=== PATIENT | female | born 1995 | race Caucasian/White ===

== ENCOUNTER 2017-10-05 15:04 | Inpatient (IN) | payer BC, OTHER ==
[~2017-10-05] VITALS: Ht 160 cm; Wt 52.6 kg
[~2017-10-05 15:04] MED LIST: ASPI-618 PO; FLUC150T PO; Metronidazole PO; SERT50TA PO
[2017-10-05] MEDS ORDERED: GABA-532 PO (23:36)
[2017-10-05] MEDS ORDERED: METH-406 PO (23:36)
[2017-10-05] MEDS ORDERED: DIAZEPAM 10 MG TABLET PO PRN ×2 (23:45)
[2017-10-05] MEDS ORDERED: IBUPROFEN 600 MG TABLET PO PRN (23:45)
[2017-10-05] MEDS ORDERED: LOPERAMIDE HCL 2 MG CAPSULE PO PRN ×2 (23:45)
[2017-10-05] MEDS ORDERED: ONDANSETRON ODT 4 MG TAB.RAPDIS SL PRN (23:45)
[2017-10-05] MEDS ORDERED: diphenhydrAMINE 50 MG CAPSULE PO PRN (23:45)
[2017-10-05] MEDS ORDERED: MIRALAX 17 GM POWD.PACK PO PRN (23:45)
[2017-10-05] MEDS ORDERED: DICYCLOMINE HCL 20 MG TABLET PO PRN (23:45)
[2017-10-05] MEDS ORDERED: MAG HYDROX/AL HYDROX/SIMETH 30 ML LIQUID UDC PO PRN (23:45)
[2017-10-05] MEDS ORDERED: DIAZEPAM 5 MG TABLET PO PRN (23:45)
[2017-10-05] MEDS ORDERED: ONDANSETRON 4 MG/2 ML VIAL IM PRN (23:45)
[2017-10-05] MEDS ORDERED: THIAMINE HCL 200 MG/2 ML VIAL IM ONE (23:45)
[2017-10-05] MEDS ORDERED: BUPRENORPHINE HCL 2 MG TAB.SUBL SL PRN (23:45)
--- NOTE | 2017-10-05 23:45 | NUR ---
Intake assessment Assessment done in intake office. Px is A&Ox4. Px is ambulatory with steady gait. Px's speech is clear and audible. Px appears anxious and intoxicated but cooperative. VS are as follows BP= 117/53, CT= 108, RR= 17, O2sat= 100%, has back pain 02/22. Px has NKA. Px is here for medically supervised withdrawals from opiate and benzo. Px stated that she has hx of withdrawal induced seizures where the last was few mos ago. Px didn't bring any medications for reconciliation. Px instructed that admission process will be continued in the unit.
[2017-10-06 00:18] LABS: BASOPHILS % (AUTO) 0.5 % (0.0-2.0); EOSINOPHILS # (AUTO) 0.2 K/uL (0.0-0.7); EOSINOPHILS % (AUTO) 2.9 % (0.0-7.0); HEMATOCRIT 41.3 % (31.2-41.9); HEMOGLOBIN 13.5 g/dL (10.9-14.3); LYMPHOCYTES # (AUTO) 3.2 K/uL (20.0-40.0); LYMPHOCYTES % (AUTO) 55.3 % (20.5-51.5); MEAN CORPUSCULAR HEMOGLOBIN 27.9 uug (24.7-32.8); MEAN CORPUSCULAR HGB CONC 33 g/dL (32.3-35.6); MEAN CORPUSCULAR VOLUME 85.1 fL (75.5-95.3); MONOCYTES # (AUTO) 0.5 K/uL (2.0-10.0); MONOCYTES % (AUTO) 8.5 % (0.0-11.0); NEUTROPHILS # (AUTO) 1.9 K/uL (1.8-8.9); NEUTROPHILS % (AUTO) 32.8 % (38.5-71.5); PLATELET COUNT (AUTO) 241 K/uL (179-408); RED BLOOD CELL COUNT(AUTO) 4.85 MIL/uL (3.63-4.92); WHITE BLOOD COUNT (AUTO) 5.8 K/uL (3.8-11.8)
--- NOTE | 2017-10-06 00:30 | NUR ---
Admission Notes A 22 y/o female px admitted at [facility] for medically supervised withdrawals from opiate and benzo. Px arrived in the unit on 10/06/2017 at 0005. Body search done and skin check performed. No contraband found. Needle prick noted on left antecubital fossa and scratch due to picking on left lateral part of mid back. Px's height is 5'3" and weighs 116 lbs. in standing scale. Px is oriented on the floor unit and room. Px follows regular diet at home. Px has NKA. Px wishes to be on Full Code. Px is A&Ox4. Px is ambulatory with steady gait. Px's speech is clear and audible. Px is cooperative during admission process. Respirations are even and unlabored. No SOB noted. Abdomen is soft and non distended. Bowel sounds noted on all 4 quadrants. Last BM was 5 days ago as verbalized. No N/V at the moment. Px complains of body aches concentrated on low back 02/22. Px stated "My anxiety is very high right now, I feel like I am near in panic mood". COWS is 14 and CIWA 16. VS are as follows BP= 123/64, TX= 96, RR= 16, T= 98.2, O2sat= 99% on RA. Px reported PMHx of withdrawal induced seizures where the last, was few mos ago, pneumonia, ulcer, UTI, fx on L1 (2016), back pain, appendectomy in 2009, anxiety, and depression. Px reported suicide thoughts and attempt last July of 2016. Substance Use: 1. Heroin- 1 G IV daily for 3 mos, last intake 10/05/2017 of 0.25 G IV 2. Xanax- 15 mg- 20 mg PO for 7 yrs, last intake 10/04/2017 of 5 mg PO 3. Methamphetamine intermittent use for 3 mos, last intake 10/03/2017 4. Cannabinoids- 2 G smoked for 3 mos, last intake 10/05/2017 of 2 G Px stated that she has been in multiple detox/treatment. Px denies being hospitalized in the last 30 days. Px reported that her longest sobriety was 6 mos last 2016. Px stated that she feels normal if she is not using drugs. Px smokes 1 pack of cigarettes daily. Px refused pneumonia and flu vaccines. Bed in lowest position, side rails up 2x and call light is within reach. We'll continue to monitor.
[2017-10-06 00:33] LABS: *AMPHETAMINE, URINE POSITIVE (NEGATIVE); *BARBITURATE, URINE NEGATIVE (NEGATIVE); *CANNABINOID, URINE POSITIVE (NEGATIVE); *COCCAINE, URINE NEGATIVE (NEGATIVE); *OPIATE, URINE POSITIVE (NEGATIVE); *PHENCYCLIDINE SCREEN,URINE NEGATIVE (NEGATIVE)
[2017-10-06 00:55] LABS: BILIRUBIN,TOTAL 0.3 mg/dL (0.2-1.0); CREATININE 0.9 mg/dL (0.6-1.3); MAGNESIUM 2.3 mg/dL (1.8-2.4); POTASSIUM 4.1 mmol/L (3.5-5.1)
[2017-10-06] MEDS: METHOCARBAMOL 750 MG TABLET PO PRN ×2 (01:01→20:29)
[2017-10-06 01:08] LABS: *URINE HCG, QUAL NEGATIVE (NEGATIVE)
[2017-10-06] MEDS: MAGNESIUM HYDROXIDE 30 ML LIQUID UDC PO PRN ×2 (01:10→21:43)
--- NOTE | 2017-10-06 01:10 | NUR ---
PRN meds At 0034, Valium 10 mg/tab, 2 tabs given PO as PRN med for CIWA of 16. At 0100, Vit B1 100 mg injection given IM on right deltoids. At 0101, Robaxin 750 mg/tab, 1 tab given PO as PRN med for body pains of 7/10. At 0110, Milk of Magnesia 30 ml given PO as PRN for constipation. We'll continue to monitor.
--- NOTE | 2017-10-06 02:01 | NUR ---
Reassessment of body aches Px stated that his body aches improved from 7/10 to 4/10. We'll continue to monitor.
[2017-10-06 04:00] VITALS: BP 117/61
--- NOTE | 2017-10-06 04:00 | NUR ---
COWS and CIWA deferred COWS and CIWA deferred due to the px is asleep, to assess if the px is awake per doctor's order. We'll continue to monitor.
--- NOTE | 2017-10-06 07:04 | NUR ---
End of Shift Note During the shift, at 0034, Valium 20 mg given PO for CIWA of 16. CIWA improved to 11 after an hour. Last COWS 9. At 0100, Vit B1 injection 100 mg given IM on right deltoids as 1x dose. At 0101, Robaxin 750 mg given PO for pain of 7/10 and it was effective. At 0110, MOM 30 ml given PO for constipation. Px's oral intake of 800 ml, voided 2x, No BM. Slept for 4 hours. At 0630, px is asleep on bed in fowlers position. Px's bed on lowest position, side rail up 2x, and call light within reach. We'll continue to monitor. Px endorsed to AM shift nurse.
--- NOTE | 2017-10-06 07:20 | NUR ---
START OF SHIFT PATIENT IS A 22 YR OLD ADMITTED TO [facility] ON 10/05/17 FOR WITHDRAWAL FROM HEROIN, ALCOHOL AND METHAMPHETAMINE, SHE IS ASLEEP IN BED AT THIS TIME, BREATHING EVEN AND UNLABORED SIDE RAILS UP X 2. SHE IS ON A 5 DAY VALIUM/SUBUTEX TAPER AND THIS IS DAY 2. 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 LAST COWS 9 CIWA 11@ 0200. PPD TO BE ADMINISTERED TODAY. PATIENT SLEPT FOR 4 HOURS LAST NIGHT. WILL FOLLOW MD PLAN OF CARE.
[2017-10-06 08:00] VITALS: BP 94/41
[2017-10-06] MEDS: GABAPENTIN 400 MG CAPSULE PO SCH ×3 (08:51→20:29)
[2017-10-06] MEDS: THIAMINE HCL 100 MG TABLET PO SCH (08:51)
[2017-10-06] MEDS: FOLIC ACID 1 MG TABLET PO SCH (08:51)
[2017-10-06] MEDS: MULTIVITAMINS,THERAPEUTIC TABLET PO SCH (08:51)
[2017-10-06] MEDS: DIAZEPAM 10 MG TABLET PO SCH ×3 (08:52→20:29)
[2017-10-06] MEDS: BUPRENORPHINE HCL 2 MG TAB.SUBL SL SCH ×3 (08:52→20:30)
[2017-10-06] MEDS ORDERED: TUBERCULIN,PURIF.PROT.DERIV. 5 TU/0.1 ML TEST ID ONE (09:00)
[2017-10-06 12:00] VITALS: BP 109/68
--- NOTE | 2017-10-06 13:07 | NUR ---
PRN VALIUM 5MG VALIUM PO GIVEN FOR COMPLAINTS IN INCREASED ANXIETY AND VISIBLE TREMORS, WILL REASSES COWS 10 CIWA 10
--- NOTE | 2017-10-06 14:07 | NUR ---
VALIUM REASSESS PATIENT STATES ANXIETY LEVEL IS STILL THE SAME, COWS 10 CIWA 10, WILL BE GIVING SCHEDULED MEDS AND CONTINUE TO ASSESS
--- NOTE | 2017-10-06 14:27 | NUR ---
PRN MEDS PATIENT STATES SHE IS VERY CONSTIPATED AND MAY HAVE HEMORRHOIDS, MIRALAX 17G GIVEN FOR CONSTIPATION AND 0.1MG PO CLONIDINE FOR ANXIETY, WILL CONTINUE TO MONITOR
[2017-10-06] MEDS: CLONIDINE HCL 0.1 MG TABLET PO PRN ×2 (14:28→21:43)
--- NOTE | 2017-10-06 15:27 | NUR ---
PRN REASSESS PATIENT STATES NO BM YET, ANXIETY LEVEL HAS INCREASED DUE TO BF ON THE UNIT PLANNING ON LEAVING AMA, TALKED TO THERAPIST WHO WILL TALK TO PATIENT 1:1. WILL CONTINUE TO MONITOR.
[2017-10-06 16:00] VITALS: BP 107/64
[2017-10-06] MEDS: SERTRALINE HCL 50 MG TABLET PO SCH (17:15)
--- NOTE | 2017-10-06 17:55 | NUR ---
REFUSAL OF ZOLOFT PATIENT STATES THAT SHE DOES NOT WANT TO TAKE ZOLOFT, THAT IT " DOESN'T WORK FOR ME " , SHE WOULD LIKE SOMETHING LIKE ATIVAN ! WILL CONTINUE TO MONITOR.
--- NOTE | 2017-10-06 18:55 | NUR ---
PRN VALIUM 10MG PO VALIUM PRN GIVEN FOR CIWA 11, CONTINUE TO MONITOR
--- NOTE | 2017-10-06 19:11 | NUR ---
END OF SHIFT : PATIENT IS A 22 YEAR OLD ADMITTED 10/05/17 TO [facility] FOR WITHDRAWAL FROM OPIATES AND BENZODIAZEPINES. TODAY IS DAY 1 OF A 5 DAY ATIVAN/SUBUTEX TAPER. PPD PLACED ON RIGHT FOREARM. PATIENT PRESENTS WITH HIGH ANXIETY FROM TIME TO TIME DUE TO HER WORRY ABOUT HER BF ON THE UNIT EXPRESSING HIS DESIRE TO LEAVE AMA. GRACE THE THERAPIST SPOKE TO PATIENT 1:1 AND ENCOURAGED HER TO THINK ABOUT HER OWN RECOVERY. PATIENT APPEARS MORE CALM . PRN MEDS GIVEN THIS SHIFT 5MG VALIUM PO,10MG VALIUM PO, MIRALAX 17G AND CLONIDINE 0.1MG PO. FLUID INTAKE THIS SHIFT 2000 ML, 4 VOIDS AND 0 BM. PATIENT REFUSED TO TAKE ZOLOFT THAT DR SPENCE ORDERED SAYING " THAT DOESNT WORK FOR ME ". LAST COWS 12 AND CIWA 13 @ 1600, CONTINUE TO FOLLOW MD PLAN OF CARE.
--- NOTE | 2017-10-06 19:22 | NUR ---
PRN REASSESS UNABLE TO REASSESS PT IN GROUP , WILL HAVE PM NURSE REASSESS.
--- NOTE | 2017-10-06 19:30 | NUR ---
Start of Shift Notes Received 22 y/o female admitted for medically supervised withdrawals from opiate and benzo. Px is on 5 day Valium and 5 day Subutex taper. Px is awake standing inside her room. Unfolded clothes noted on her bed. Px appears depressed and anxious. Px verbalized "I am near panic attack. I need you to manage my anxiety". "I have very bad panic attacks". Last Valium 10 mg was given PO as PRN at 1855 by AM shift nurse. Explained the effect of Valium and what are the effects of medications that are scheduled at 2100 tonight. Seng was crying while talking about her issues on her boyfriend who is admitted also here in the unit. Px was reassured. Last reported COWS 12 and CIWA 11 at 1855. Bed on lowest position, side rail up 2x padded, and call light within reach. We'll continue to monitor.
[2017-10-06 20:00] VITALS: BP 102/60
[2017-10-06] MEDS: LEVETIRACETAM 500 MG TABLET PO SCH (20:29)
--- NOTE | 2017-10-06 21:30 | NUR ---
Reassessment of back pain Px stated that there was a little improvement of back pain from 8/10 to 5-6/10. We'll continue to monitor.
--- NOTE | 2017-10-06 21:43 | NUR ---
PRN meds At 2028, Robaxin 750 mg given PO for back pain of 8/10. At 2142, Bentyl 20 mg given PO for stomach cramps, Clonidine 0.1 mg given PO for anxiety and Milk of Magnesia 30 ml given PO for constipation. We'll continue to monitor.
--- NOTE | 2017-10-06 22:45 | NUR ---
Reassessment of anxiety Px stated that her anxiety is still high at 7/10. We'll continue to monitor.
--- NOTE | 2017-10-06 22:45 | NUR ---
Reassessment of stomach cramps Px stated that her stomach cramps improved after an hour of administration of Bentyl 20 mg PO. We'll continue to monitor.
--- NOTE | 2017-10-06 23:00 | NUR ---
BM Px stated that she pass BM 1x large after more than 1 hour of administration of MOM 30 ml PO. We'll continue to monitor.
[2017-10-06] MEDS: LORAZEPAM 2 MG/1 ML VIAL IM PRN (23:43)
[2017-10-07] VITALS: BP 112/61
--- NOTE | 2017-10-07 | NUR ---
Seizure episodes At 2336, CUPOLA OPERATOR called out for help due to the px is having seizure on the floor in the hallway. Px was protected and put to left side lying position. VS as follows BP= 135/87, QD=613, O2sat= 100%. Tonic clonic seizure lasted for 30 seconds. According to the CUPOLA OPERATOR Vicki, px didn't hit the floor while the px went down from standing position. notified. Px was assisted back to her bed in the room via wheelchair. Px was placed on 1 to 1 and Ativan 2 mg/ml given IM per doctor's order. Px was disoriented for few minutes. Px was reoriented and reassured. At 2354, 2nd episode tonic clonic seizure that lasted for 35 seconds, again px was protected and put to left side lying position. VS as follows BP= 142, WI 89, O2sat= 100% with O2 inhalation at 10 LPM via non-rebreather mask. Px was again disoriented after the seizure. Px was frustrated that she was disoriented then started crying. Px was reoriented, comforted and redirected. At 0000, 3rd episode of tonic clonic seizure occurred and lasted for 45 seconds. Px was protected and put to her left side. VS as follows, BP= 112/61, WI= 117, [id number]=475% with [id number] of 10 LPM via non rebreather mask. Ativan 2mg/ml given IM at 0012. Px was again disoriented postictal. Px was reoriented and reassured. Px fell asleep around 0030. At 0400, BP= 114/69, WI=64, O2sat= 99% on RA, and RR= 16. Px kept on 1 to 1 sitter. We'll continue to monitor.
[2017-10-07] MEDS ORDERED: LORAZEPAM 2 MG/1 ML VIAL ONE (00:12)
--- NOTE | 2017-10-07 00:12 | NUR ---
PRN Ativan injections At 2343, Ativan 2 mg/ml given IM as PRN med for 1st seizure. At 0012, Ativan 2 mg/ml given IM for 3rd seizure. 2nd dose of Ativan was over ridden by the charge nurse due to the Pyxis didn't allow to remove the Ativan IM. Order was to repeat 1x after 2 minutes if there is ongoing convulsions.
[2017-10-07] MEDS: LORAZEPAM 2 MG/1 ML VIAL IM PRN (00:14)
[2017-10-07 04:00] VITALS: BP 114/69
--- NOTE | 2017-10-07 07:25 | NUR ---
End of Shift Notes During the shift, at 2028, Robaxin 750 mg given PO for back pain of 8/10, and it was not so effective. At 2142, bentyl 20 mg, Clonidine 0.1 mg and MOM 30 ml given PO for stomach cramps, anxiety and constipation respectively, and they were effective. Px had 3 episodes of tonic clonic convulsions, MD aware. Ativan 2 mg/ml given IM at 2342 and 11 and Px was placed on 1 to 1 per doctors order. Pxs oral intake is 800 ml, voided 2x, BM 1x. Slept for 6 hours. Last COWS 10 and CIWA 11. Bed on lowest position, side rail up 2x padded, and call light within reach. We'll continue to monitor.
--- NOTE | 2017-10-07 07:30 | NUR ---
START OF SHIFT Pt 22 y/o female admitted for medically supervised withdrawal. Pt received in room on bed with eyes closed resting, but easily arousable to name. Pt with sitter 1:1 for safety. Pt alert and oriented to name, place, and time. Perrla. Skin warm and moist to touch. Respirations even and unlabored. Bilateral hand tremors noted. Pt appears disheveled with hair uncombed. Dirty clothes observed on the floor by bedside. Pt anxious and restless this morning, not able to lay still while on bed, and with pressured speech noted. It was reported that pt slept for 6 hours last night. Pt is on a 5 day valium taper and is on day 2. Pt is also on 5 day subutex taper and is on day 2. Last cows=10 and ciwa=11 reported at 0000. Bed on lowest position with side rails x 2 up for safety. Call light within reach.
[2017-10-07 08:00] VITALS: BP 122/91
[2017-10-07 08:07] LABS: HEPATITIS B SURFACE AG Negative (Negative)
[2017-10-07] MEDS: SERTRALINE HCL 50 MG TABLET PO SCH (08:09)
[2017-10-07] MEDS: THIAMINE HCL 100 MG TABLET PO SCH (08:09)
[2017-10-07] MEDS: GABAPENTIN 400 MG CAPSULE PO SCH (08:09)
[2017-10-07] MEDS: MULTIVITAMINS,THERAPEUTIC TABLET PO SCH (08:09)
[2017-10-07] MEDS: LEVETIRACETAM 500 MG TABLET PO SCH ×2 (08:09→20:44)
[2017-10-07] MEDS: DIAZEPAM 10 MG TABLET PO SCH ×3 (08:09→20:44)
[2017-10-07] MEDS: FOLIC ACID 1 MG TABLET PO SCH (08:09)
[2017-10-07] MEDS: METHOCARBAMOL 750 MG TABLET PO PRN ×2 (08:26→20:44)
--- NOTE | 2017-10-07 08:26 | NUR ---
PRN Pt states has body aches 7/10 of generalized back. Robaxin po prn per MD order given and tolerated well.
[2017-10-07] MEDS: ACETAMINOPHEN 325 MG TABLET PO PRN (08:30)
--- NOTE | 2017-10-07 08:30 | NUR ---
PRN Pt states has pain 7/10 of right hip. Tylenol po prn per MD order given and tolerated well.
[2017-10-07] MEDS ORDERED: KETOROLAC TROMETHAMINE 30 MG INJ IM ONE (09:00)
[2017-10-07] MEDS ORDERED: BUPRENORPHINE HCL 2 MG TAB.SUBL SL SCH (09:00)
--- NOTE | 2017-10-07 09:26 | NUR ---
PRN CAROLIN Pt observed in room on bed with eyes closed resting, but easily arousable to name.
--- NOTE | 2017-10-07 09:30 | NUR ---
PRN CAROLIN Pt observed in room on bed with eyes closed resting, but easily arousable to name.
[2017-10-07 12:00] VITALS: BP 100/62
--- NOTE | 2017-10-07 12:00 | NUR ---
CIWA AND COWS DEFERRED CIWA and COWS deferred. Pt in room with on bed with eyes closed resting, but arousable to name. Pt not able to keep eyes open for further assessment.
[2017-10-07] MEDS: DIVALPROEX 250 MG TABLET.DR PO SCH ×3 (14:51→20:44)
--- NOTE | 2017-10-07 15:30 | NUR ---
NSG ENTRY Pt refused to take depakote and neurontin. Pt stated yelling, " I'm only taking valium and ativan!". made aware.
--- NOTE | 2017-10-07 15:45 | NUR ---
NSG ENTRY Pt walked out of room with unsteady gait, with sitter and another staff right behind pt. Attempted to redirect pt back to bed for safety, but pt kept refusing and insisted going to another pt room. Pt very hard to redirect. Pt yelled at another pt in the room. After alot of prompting from administration, pt was redirected back to room.
[2017-10-07 16:00] VITALS: BP 104/72
[2017-10-07] MEDS: GABAPENTIN 300 MG CAPSULE PO SCH ×2 (16:06→20:44)
[2017-10-07] MEDS: BUPRENORPHINE HCL 2 MG TAB.SUBL SL SCH ×2 (16:11→20:48)
[2017-10-07] MEDS ORDERED: NICOTINE POLACRILEX 4 MG GUM-PK OF TEN BC PRN (16:30)
[2017-10-07] MEDS ORDERED: NICOTINE 14 MG/24HR PATCH TD PRN (16:30)
--- NOTE | 2017-10-07 19:30 | NUR ---
Start of Shift Note: Endorsement received from day shift nurse. Received patient asleep in bed with eyes close. Pt easily arousable and noted to be alert & oriented to name, place & situation. Pt unsure of date and time. Pt observed to be drowsy but able to make needs known. Pt is unkempt, disheveled with uncombed hair. Room is dirty, with with opened food on table & scattered clothes noted on table and bed. Pt is labile, with anxious/irritable mood, appears flushed with red & teary eyes, moist/clammy skin, reports generalized body aches, stomach cramps, stuffy nose, & noted with fine tremors. Last COWS 8 CIWA 8. Pt received PRN Tylenol, Robaxin & Toradol during day shift. Pt is on 1:1 sitter for seizure precaution. Encourage to increase fluid intake. Pt educated current plan of care for the night and medication regimen. Will continue to monitor patient.
--- NOTE | 2017-10-07 19:39 | NUR ---
END OF SHIFT Pt 22 y/o female admitted for medically supervised withdrawal. Pt alert and oriented to name, place, and time. Perrla. Skin warm and moist to touch. Respirations even and unlabored. Bilateral hand tremors noted. Pt appears disheveled and unkempt with hair uncombed. Blankets scattered throughout her bed and on the floor. Dirty clothes observed on floor. Empty vitamin water bottles littered around the room, mostly on bedside shelves. Pt with sitter 1:1 for safety. Pt with low motivation for self care. Cows=10@0800, deferred@1200, and 8@1600. Ciwas=7 @0800, deferred @1200, and 8@1600. Pt was seen by MD today. Pt had episode this afternoon where she was selective with medications and refusing. After a lot of prompting from multiple staff, pt took medications scheduled. Pt is on a 5 day valium taper and is on day 2. Pt is also on a 5 day Subutex taper and is on day 2. Bed on lowest position with side rails x2 up for safety. Call light within reach.
[2017-10-07] MEDS ORDERED: DIAZEPAM 10 MG TABLET PO PRN (19:45)
[2017-10-07] MEDS ORDERED: DIAZEPAM 5 MG TABLET PO PRN (19:45)
[2017-10-07 20:00] VITALS: BP 101/62
--- NOTE | 2017-10-07 20:44 | NUR ---
PRN Robaxin Patient complained of 7/10 generalized body aches. PRN Robaxin administered as ordered. Will monitor for effectiveness of medication.
--- NOTE | 2017-10-07 21:44 | NUR ---
PRN Reassessment Patient verbalized mild relief from body aches by the decreased in pain from 7/10 to 4/10 noted. 1:1 sitter at bedside. Patient stable at this time. Safety measures in place. Will continue to monitor patient.
[2017-10-08] VITALS: BP 123/78
[2017-10-08 03:42] VITALS: BP 121/70
--- NOTE | 2017-10-08 03:49 | NUR ---
PRN Valium & Motrin Patient awake and is very anxious and irritable. Pt presented with restlessness, generalized body aches, stuffy nose, stomach cramps, fine tremors, & mild headache. Vitals noted WNL. COWS 12 CIWA 16 at this time. Valium 20mg and Motrin 600mg PO administered as ordered. 1:1 sitter at bedside. Safety precautions are in place. Will monitor for effectiveness of medication.
--- NOTE | 2017-10-08 04:49 | NUR ---
PRN Reassessment Pt verbalized decreased in pain from 6/10 to 3/10, decreased in anxiety & agitation, reports relief from headache with no facial grimacing noted. Pt appears more calm and comfortable. Continues with a 1:1 sitter. Safety measures in place. Will continue to monitor patient.
--- NOTE | 2017-10-08 07:09 | NUR ---
End of Shift Note: Pt asleep at this time and easily arousable. Pt continues on a 1:1 sitter for seizure precaution. Pt remained stable. No episodes of seizure noted during my shift. Pt continues on her Valium and Subutex taper and tolerating well. Pt presented with anxiety, generalized body aches, sweating, chills, restlessness, stuffy nose, stomach cramps, anxiety, & agitation during my shift. Last COWS 8 CIWA 9 noted. Pt received PRN Robaxin, Valium 20mg, and Motrin 600mg during my shfit and were effective. Continue to closely monitor signs and symptoms of withdrawal. Vitals noted WNL. Pt slept for a total of 8 hours. Fluid intake: 200 ml. Voided 1x with no bowel movement during my shift. Encourage pt to increase fluid intake for rehydration. All needs attended. Safety measures in place. Will endorse to day shift nurse.
--- NOTE | 2017-10-08 07:30 | NUR ---
START OF SHIFT Pt 22 y/o female admitted for medically supervised withdrawal. Pt received in room on bed with eyes closed resting, but easily arousable to name. Pt with sitter 1:1 for safety. Pt alert and oriented to name, place, and time. Perrla. Skin warm and moist to touch. Respirations even and unlabored. Bilateral hand tremors noted. Pt appears disheveled with hair uncombed. Empty candy wrappings littered throughout the bed and floor. Pt with low motivation for self care. It was reported that pt slept for 8 hours last night. Pt is on a 5 day valium taper and is on day 3. Pt is also on 5 day subutex taper and is on day 3. Last cows=8 and ciwa=9 reported at 2100. Bed on lowest position with side rails x 2 up for safety. Call light within reach.
[2017-10-08 08:00] VITALS: BP 109/62
[2017-10-08] MEDS: THIAMINE HCL 100 MG TABLET PO SCH (08:50)
[2017-10-08] MEDS: DIVALPROEX 250 MG TABLET.DR PO SCH ×3 (08:50→21:32)
[2017-10-08] MEDS: BUPRENORPHINE HCL 2 MG TAB.SUBL SL SCH ×4 (08:50→21:32)
[2017-10-08] MEDS: MULTIVITAMINS,THERAPEUTIC TABLET PO SCH (08:51)
[2017-10-08] MEDS: DIAZEPAM 5 MG TABLET PO SCH ×2 (08:51→12:33)
[2017-10-08] MEDS: FOLIC ACID 1 MG TABLET PO SCH (08:51)
[2017-10-08] MEDS: SERTRALINE HCL 50 MG TABLET PO SCH (08:53)
[2017-10-08] MEDS: LEVETIRACETAM 500 MG TABLET PO SCH ×2 (08:53→21:32)
[2017-10-08] MEDS: GABAPENTIN 300 MG CAPSULE PO SCH ×3 (08:53→21:32)
[2017-10-08 12:00] VITALS: BP 106/68
[2017-10-08] MEDS: KETOROLAC TROMETHAMINE 30 MG INJ IM PRN ×2 (12:34→21:36)
--- NOTE | 2017-10-08 12:45 | NUR ---
PRN Pt states has generalized back pain 02/22. Toradol IM prn per MD order given and tolerated well.
--- NOTE | 2017-10-08 13:45 | NUR ---
PRN EVAL Pt observed on bed with eyes closed resting, but easily arousable to name.
[2017-10-08] MEDS: DIAZEPAM 10 MG TABLET PO PRN (14:53)
--- NOTE | 2017-10-08 14:54 | NUR ---
PRN Pt with ciwa=13. Pt very agitated and restless. Pt pacing around the unit arguing with another client. Pt very hard to redirect away. Valium 10mg po prn per MD order given and tolerated well. Pt kept yelling, " I need ativan! I need ativan!"
--- NOTE | 2017-10-08 15:54 | NUR ---
PRN EVAL Pt with ciwa=7.
[2017-10-08 16:00] VITALS: BP 107/65
[2017-10-08] MEDS ORDERED: DIAZEPAM 5 MG TABLET PO SCH (17:00)
--- NOTE | 2017-10-08 17:06 | NUR ---
Therapist encouraged client to go to all groups today.
[2017-10-08] MEDS: ACETAMINOPHEN 325 MG TABLET PO PRN (17:19)
[2017-10-08] MEDS: METHOCARBAMOL 750 MG TABLET PO PRN (17:19)
--- NOTE | 2017-10-08 17:25 | NUR ---
PRN Pt with c/o pain of generalized back 5/10. Tylenol po prn per MD order given and tolerated well.
--- NOTE | 2017-10-08 17:26 | NUR ---
PRN Pt states has back aches 01/23. Robaxin po prn per MD order given and tolerated well.
--- NOTE | 2017-10-08 18:25 | NUR ---
PRN CAROLIN Pt observed in room on bed with eyes closed resting, but easily arousable to name.
--- NOTE | 2017-10-08 18:26 | NUR ---
TANVI COE Pt observed in room on bed with eyes closed resting, but arousable to name.
--- NOTE | 2017-10-08 19:05 | NUR ---
END OF SHIFT Pt 22 y/o female admitted for medically supervised withdrawal. Pt alert and oriented to name, place, and time. Perrla. Skin warm and moist to touch. Respirations even and unlabored. Bilateral hand tremors noted. Pt appears disheveled and unkempt with hair uncombed. Empty vitamin water bottles littered around the room, mostly on bedside shelves. Reeses pieces wrappers scattered throughout the room. Pt with sitter 1:1 for safety. Pt with low motivation for self care. Encourage pt maintain personal hygiene. Pt with episode of agitation and tearfulness this afternoon. Cows=10@0800, 9@1200, and 9@1600. Ciwas=9 @0800, 9@1200, and 7@1600. Pt was seen by MD today. Pt with multiple episodes of anxiety and irritability throughout the day. Pt was given a valium 10mg prn per MD order this afternoon. Pt is on a 5 day valium taper and is on day 3. Pt is also on a 5 day Subutex taper and is on day 3. Bed on lowest position with side rails x2 up for safety. Call light within reach.
--- NOTE | 2017-10-08 19:15 | NUR ---
Start of Shift Note: Endorsement received from day shift nurse. Received patient asleep in bed with eyes close. Pt easily arousable and noted to be alert & oriented to name, place & situation. Pt unsure of date and time. Pt observed to be drowsy but able to make needs known. Pt continues to have 1:1 sitter for seizure precaution. Pt is unkempt, disheveled with uncombed hair. Room is dirty, with with opened food on table & scattered clothes noted on table and bed. Pt noted with anxious/irritable mood, appears flushed with red & teary eyes, moist/clammy skin, reports generalized 8/10 body aches, stuffy nose, & noted with fine tremors. Last COWS 9 CIWA 7. Pt received PRN Nicotine patch, Tylenol, Robaxin, Valium & Toradol during day shift. Encourage to increase fluid intake. Pt educated current plan of care for the night and medication regimen. Will continue to monitor patient.
[2017-10-08 20:00] VITALS: BP 96/63
[2017-10-08] MEDS ORDERED: DIAZEPAM 10 MG TABLET PO SCH (21:00)
--- NOTE | 2017-10-08 21:36 | NUR ---
PRN Toradol Patient complained of 8/10 generalized body aches. Pt noted to be restless in bed d/t pain. PRN Toradol administered at right buttocks and tolerated well. Will continue to monitor patient.
--- NOTE | 2017-10-08 22:36 | NUR ---
PRN Reassessment Patient in bed with eyes close and easily arousable. Patient appears comfortable with no facial grimacing noted. Safety measures in place. Will continue to monitor patient.
[2017-10-09] VITALS: BP 97/62
[2017-10-09] MEDS: DIAZEPAM 10 MG TABLET PO PRN (00:44)
[2017-10-09] MEDS: ACETAMINOPHEN 325 MG TABLET PO PRN (00:44)
[2017-10-09] MEDS: METHOCARBAMOL 750 MG TABLET PO PRN ×2 (00:44→08:28)
--- NOTE | 2017-10-09 00:44 | NUR ---
PRN Robaxin/Tylenol/Valium Patient presented with anxious/irritable mood, reports 7/10 generalized body aches, fine tremors and sweating. CIWA 14 noted at this time. Vitals WNL. PRN Robaxin, Tylenol & Valium 10mg administered as ordered. Safety measures in place. Will monitor for effectiveness of medication.
--- NOTE | 2017-10-09 01:44 | NUR ---
PRN Reassessment Patient asleep in bed at this time. Pt appears calm and comfortable. No facial grimacing noted. Continues with a 1:1 sitter at bedside. Unable to assess COWS/CIWA scores at this time. Safety measures in place. Will continue to monitor patient.
--- NOTE | 2017-10-09 07:04 | NUR ---
End of Shift Note: Pt still asleep at this time. Pt continues on a 1:1 sitter for seizure precaution. No episodes of seizure noted during my shift. Pt continues on her Valium and Subutex taper and tolerating well. Pt presented with anxiety, generalized body aches, sweating, chills, restlessness, stuffy nose, stomach cramps, anxiety, & agitation during my shift. Last COWS 11 CIWA 14 noted. Pt received PRN Toradol, Robaxin , Tylenol & Valium during my shift and were effective. Continue to closely monitor signs and symptoms of withdrawal. Vitals noted WNL. Pt slept for a total of 8 hours. Fluid intake: 592 ml. Voided 2x with no bowel movement during my shift. Encourage pt to increase fluid intake for rehydration. All needs attended. Safety measures in place. Will endorse to day shift nurse.
--- NOTE | 2017-10-09 07:05 | NUR ---
Start of Shift Pulp Roller received report on 22 year old female admitted on 10/06/17 for Heroin, Xanax and Methamphetamine detoxification. Pt endorses NKDA, full code and regular diet. PMH of anxiety, depression and back pain. Pt has history of withdrawal induced seizures, with last known seizure on 10/06/17, per NOC report. Pt currently on Valium and Subutex taper, tolerating well, with last COWS 11 and CIWA 14, recorded at 0200 by NOC. Pt administered Robaxin, Tylenol, Valium and Toradol PRN on NOC. Pulp Roller encounters pt in room with staff at bedside on 1:1 due unsteady gait. Pts gait is unsteady and requires pt to be in wheelchair to transport self. Pt is focused on medication and symptom relief, requesting several PRN medication upon awaking. Pt complain of pain, then states Toradol is ineffective and requires more medication, freelance writer educated pt on Toradol and pt endorsed receiving some relief from the Toradol. Pt is A/O x4 and makes needs known. Pt is lethargic and slurs words, thought content is perseverating, blunted affect and congruent mood. Bed in low position, wheels locked and side rails up x2. Will continue to monitor, support and encourage according to plan of care.
[2017-10-09 08:04] VITALS: BP 105/57
[2017-10-09] MEDS: DIVALPROEX 250 MG TABLET.DR PO SCH ×3 (08:25→22:48)
[2017-10-09] MEDS: FOLIC ACID 1 MG TABLET PO SCH (08:26)
[2017-10-09] MEDS: LEVETIRACETAM 500 MG TABLET PO SCH ×2 (08:26→22:47)
[2017-10-09] MEDS: SERTRALINE HCL 50 MG TABLET PO SCH (08:26)
[2017-10-09] MEDS: GABAPENTIN 300 MG CAPSULE PO SCH ×3 (08:26→22:48)
[2017-10-09] MEDS: MULTIVITAMINS,THERAPEUTIC TABLET PO SCH (08:26)
[2017-10-09] MEDS: THIAMINE HCL 100 MG TABLET PO SCH (08:26)
[2017-10-09] MEDS: BUPRENORPHINE HCL 2 MG TAB.SUBL SL SCH ×3 (08:27→22:48)
[2017-10-09] MEDS: KETOROLAC TROMETHAMINE 30 MG INJ IM PRN (08:28)
--- NOTE | 2017-10-09 08:28 | NUR ---
PRN Toradol/Robaxin Pt complain of back and hip pain at 9/10 with severe muscle aches. Pt denies complete effectiveness of Tordaol and requests an increased dosage, copy writer to speak with MD on rounds. Pt requests the Toradol and Robaxin after attempting non-pharmacological measures. Music Composition Teacher administered medication per MD order. Will continue to monitor, support and encourage according to plan of care.
--- NOTE | 2017-10-09 08:58 | NUR ---
PRN Toradol Pt endorses some relief, rating her pain as 5/10. Pt's affect is less pained and pt is more sociable. Will continue to monitor, support and encourage according to plan of care.
[2017-10-09] MEDS ORDERED: DIAZEPAM 5 MG TABLET PO SCH (09:00)
--- NOTE | 2017-10-09 09:28 | NUR ---
TANVI Yi Pt endorsing relief from muscle aches, but requests stronger medication to completely eliminate her pain. Will continue to monitor, support and encourage according to plan of care.
--- NOTE | 2017-10-09 10:29 | NUR ---
ENDORSEMENT Pt endorsed to me. All information given.
--- NOTE | 2017-10-09 10:29 | NUR ---
Endorsement Cuff Folder endorsed care of 22 year old female admitted on 10/06/17 for Heroin, Xanax and Methamphetamine detoxification. Pt endorses NKDA, full code and regular diet. PMH of anxiety, depression and back pain. Pt has history of withdrawal induced seizures, with last known seizure on 10/06/17, per NOC report. Pt currently on Valium and Subutex taper, tolerating well, with last COWS 9 and CIWA 10, recorded at 0800. Pt administered Robaxin, and Toradol PRN at 0830. Pt remains on 1:1 for fall precautions. Pts gait is unsteady and requires pt to be in wheelchair to transport self. Pt is focused on medication and symptom relief, requesting several PRN medication upon awaking. Pt is A/O x4 and makes needs known. Pt is cooperative and has been polite with policy writer typist. Bed in low position, wheels locked and side rails up x2. Will continue to monitor, support and encourage according to plan of care.
[2017-10-09 12:00] VITALS: BP 108/64
[2017-10-09] MEDS ORDERED: KETOROLAC TROMETHAMINE 60 MG INJ IM PRN (12:15)
[2017-10-09] MEDS: LORAZEPAM 1 MG TABLET PO SCH ×2 (12:29→16:06)
[2017-10-09] MEDS: LIDOCAINE 5% PATCH TD SCH (12:29)
[2017-10-09] MEDS: BACLOFEN 10 MG TABLET PO SCH ×2 (14:42→22:48)
[2017-10-09] MEDS: KETOROLAC TROMETHAMINE 60 MG INJ IM PRN ×2 (14:56→22:46)
--- NOTE | 2017-10-09 14:56 | NUR ---
PRN Pt states has generalized back and right hip pain. Toradol IM prn per MD order given and tolerated well.
--- NOTE | 2017-10-09 15:30 | NUR ---
NSG ENTRY Pt in room yelling at staff," I can yell at you if I want to. What are you gonna do about." Per staff, pt was responded that way to SENIOR INDUSTRIAL ENGINEER because she was asked not to speak of drugs while out in the recreational room and patio. Per Staff, different staff members asked her multiple times to not speak of drugs to other clients. Pt also stated to me, " I need my ativan now! I'm so fucken stressed!", with some tears noted. Pt hard to redirect and verbally abusive.
--- NOTE | 2017-10-09 15:56 | NUR ---
TANVI COE Pt observed on bed with eyes closed resting, but arousable to name. Addendum: 10/09/17 at 1622 by MARIANN STOVER RN incorrect pt
--- NOTE | 2017-10-09 15:56 | NUR ---
PRN CAROLIN pt observed in on bed talking with staff.
[2017-10-09 16:00] VITALS: BP 110/68
--- NOTE | 2017-10-09 18:48 | NUR ---
END OF SHIFT Pt 22 y/o female admitted for medically supervised withdrawal. Pt alert and oriented to name, place, and time. [place]la. Skin warm and moist to touch. Respirations even and unlabored. Bilateral hand tremors noted. Pt appears disheveled and unkempt with hair uncombed. Pt malodorous. Encouraged to maintain hygiene. Empty vitamin water bottles littered around the room, mostly on bedside shelves. Food wrappings of mostly aga's peanut butter cup scattered throughout the floor. Pt with sitter 1:1 for safety. Pt with low motivation for self care. Encourage pt maintain personal hygiene. Cows=9@0800, 9@1200, and 9@1600. CIWAS= 10@0800, 9@1200, and 9@1600. Pt was seen by today. Pt uncooperative and disruptive to therapeutic milieu throughout the day. Pt hard to redirect. Pt is on a 5 day valium taper and is on day 4. Pt is also on a 5 day Subutex taper and is on day 4. Bed on lowest position with side rails x2 up for safety. Call light within reach.
--- NOTE | 2017-10-09 19:20 | NUR ---
START OF SHIFT Patient is a 22-year-old female admitted on 10/05/17 for heroin and Xanax withdrawal, with concurrent use of meth and cannabinoids. Patient is on day 4 of 5-day Valium and 5-day Subutex taper, however, per patient's request, changed Valium taper to Ativan taper, in effect as of today. Patient is on fall and seizure precautions, with last seizure episode on 10/07/17 midnight (0000). Patient is on 1 liter of oxygen via NC, per order. Patient was placed on 1:1 for safety and continues for unsteady gait. Patient's last COWS was 9, last CIWA 7. Patient received a PRN Toradol 30mg IM earlier today at 0828, and a PRN Toradol 60mg IM at 1456 (order was changed at 1230). Upon assessment, patient is sleeping in bed, appears disheveled with visible stains on her clothes. Patient's room is cluttered, snacks and bottles scattered. Safety measures in place, side rails up x2, bed locked in lowest position, call light within reach, 1:[address] Will continue to monitor.
[2017-10-09 20:00] VITALS: BP 99/60
--- NOTE | 2017-10-09 20:00 | NUR ---
COWS & CIWA DEFERRED COWS and CIWA deferred due to patient sleeping; to be assessed and scored while patient is awake, per protocol. Respirations even and unlabored, patient receiving 1 L of oxygen via NC. Safety measures in place, side rails up x2, bed locked in low position, 1:[address], call light within reach. Will continue to monitor. Will assess COWS and CIWA when patient wakes.
[2017-10-09] MEDS ORDERED: LORAZEPAM 1 MG TABLET PO SCH (21:00)
[2017-10-09] MEDS ORDERED: LORAZEPAM 1 MG TABLET PO PRN ×2 (21:00)
[2017-10-09] MEDS: MAGNESIUM HYDROXIDE 30 ML LIQUID UDC PO PRN (22:46)
--- NOTE | 2017-10-09 22:46 | NUR ---
PRN TORADOL Upon waking, patient reports bilateral hip pain 10/10, sharp and radiating down both legs. PRN Toradol 60mg given IM in left deltoid. Safety measures in place, side rails up x2, bed locked in low position, 1:[address], call light within reach. Will reassess for effectiveness.
--- NOTE | 2017-10-09 23:16 | NUR ---
PRN TORADOL REASSESSMENT Patient reports 2/10 on pain scale. PRN Toradol effective. Safety measures in place, side rails up x2, bed locked in low position, 1:[address], call light within reach. Will continue to monitor.
[2017-10-10] VITALS: BP 107/63
--- NOTE | 2017-10-10 | NUR ---
COWS & CIWA DEFERRED COWS and CIWA deferred due to patient sleeping; to be assessed and scored while patient is awake, per protocol. Respirations even and unlabored. Safety measures in place, side rails up x2, bed locked in low position, 1:[address], call light within reach. Will continue to monitor.
[2017-10-10] MEDS: METHOCARBAMOL 750 MG TABLET PO PRN (03:39)
--- NOTE | 2017-10-10 03:39 | NUR ---
PRN ROBAXIN AND ATIVAN Patient awoke and began to complain of pain in her right hip and right leg. When asked initially, patient was almost in tears, stating that her pain level was 8/10. When asked again after retrieving the meds and taking patient's vital signs, patient reported 6/10 on pain scale. Vital signs as follows: BP 105/68, HR 83, temp 98.6, pain 6-8/10. Patient scored CIWA of 6. PRN Robaxin and PRN Ativan 1mg (for CIWA 5-12) were given PO. Safety measures in place, side rails up x2, bed locked in low position, 1:[address] at bedside, call light within reach. Will reassess for effectiveness.
[2017-10-10 04:00] VITALS: BP 105/68
--- NOTE | 2017-10-10 04:39 | NUR ---
PRN ROBAXIN AND ATIVAN REASSESSMENT Patient is in bed, sleeping with eyes closed. Unable to reassess effectiveness of PRN meds at this time. Patient's respirations are even and unlabored. Safety measures are in place, 1:1 at bedside, call light within reach. Will continue to monitor.
--- NOTE | 2017-10-10 07:02 | NUR ---
END OF SHIFT Patient is a 22-year-old female admitted on 10/05/17 for heroin and Xanax withdrawal, with concurrent use of meth and cannabinoids. Patient is on day 5 of 5-day Valium and 5-day Subutex taper, however, per patient's request, changed Valium taper to Ativan taper, in effect as of yesterday. Patient is on fall and seizure precautions, with last seizure episode on 10/07/17 midnight (0000). Patient is on 1 liter of oxygen via NC, per order, and continues to maintain O2 saturation of 97%-100%. Patient continues on 1:1 for unsteady gait. Patient's last COWS was 7, last CIWA 6. Patient received a PRN Toradol 60mg IM at 2246, PRN Robaxin and PRN Ativan 1mg at 0339. Patient reported feeling "some burning" after urinating, but not "while" urinating. SN notified charge nurse and will endorse. Safety measures in place, side rails up x2, bed locked in lowest position, call light within reach, 1:[address] at bedside. Will endorse to day shift.
[2017-10-10 08:00] VITALS: BP 104/65
--- NOTE | 2017-10-10 08:00 | NUR ---
START OF SHIFT NOTE Received report from night nurse, patient received PRN Toradol, Robaxin, Ativan,last CIWA-7, COWS-6,and cont on 1:1 for safety, slept for 8 hours. Received pt in her room alert awake anxious agitated, c/o of lower back pain, chills, sweats, stuffy nose, nausea. Patient cont on Subutex and Ativan taper tolerating well. Skin intact warm and dry to touch. Educated pt regarding plan of the day and medication regimen patient verbalized understanding. Safety measures in place. Will cont to monitor.
[2017-10-10] MEDS: FOLIC ACID 1 MG TABLET PO SCH (08:18)
[2017-10-10] MEDS: GABAPENTIN 300 MG CAPSULE PO SCH ×3 (08:18→22:17)
[2017-10-10] MEDS: SERTRALINE HCL 50 MG TABLET PO SCH (08:18)
[2017-10-10] MEDS: MULTIVITAMINS,THERAPEUTIC TABLET PO SCH (08:18)
[2017-10-10] MEDS: THIAMINE HCL 100 MG TABLET PO SCH (08:18)
[2017-10-10] MEDS: BACLOFEN 10 MG TABLET PO SCH ×3 (08:19→22:17)
[2017-10-10] MEDS: BUPRENORPHINE HCL 2 MG TAB.SUBL SL SCH ×2 (08:19→21:00)
[2017-10-10] MEDS: LIDOCAINE 5% PATCH TD SCH (08:19)
[2017-10-10] MEDS: LORAZEPAM 1 MG TABLET PO SCH ×4 (08:19→22:17)
[2017-10-10] MEDS: LEVETIRACETAM 500 MG TABLET PO SCH ×2 (08:19→22:18)
[2017-10-10] MEDS: KETOROLAC TROMETHAMINE 60 MG INJ IM PRN ×2 (08:21→17:30)
--- NOTE | 2017-10-10 08:21 | NUR ---
PRN TORADOL Patient c/o of lower back sharp pain radiating down to bilateral legs 04/25, PRN Toradol 60mg IM administered as ordered. Will cont to monitor and reassess.
[2017-10-10] MEDS: DIVALPROEX 250 MG TABLET.DR PO SCH ×3 (08:41→22:17)
[2017-10-10] MEDS ORDERED: DIAZEPAM 5 MG TABLET PO SCH (09:00)
--- NOTE | 2017-10-10 09:12 | NUR ---
TORADOL REASSESSMENT Per pt Toradol was effective in reducing her pain 2/10.
[2017-10-10] MEDS: CLONIDINE HCL 0.1 MG TABLET PO PRN (10:15)
--- NOTE | 2017-10-10 10:15 | NUR ---
PRN CLONIDINE Patient reported increased anxiety, agitation, sweats. PRN Clonidine 0.1mg PO given as ordered. Will cont to monitor and reassess the pt.
[2017-10-10] MEDS ORDERED: OLANZAPINE ZYDIS 5 MG TAB.RAPDIS PO PRN (10:45)
[2017-10-10] MEDS ORDERED: LORAZEPAM 1 MG TABLET PO ONE (11:00)
--- NOTE | 2017-10-10 11:15 | NUR ---
CLONIDINE REASSESSMENT Patient noted resting in her room. Medication noted effective.
[2017-10-10 12:00] VITALS: BP 100/62
--- NOTE | 2017-10-10 12:00 | NUR ---
ATIVAN NON ADMINISTERED Patient noted sleeping breathing normal no SOB noted. Cont with 1:1 for safety. Ativan was non administered. made aware.
--- NOTE | 2017-10-10 15:00 | NUR ---
MEDICATION HELD Afternoon medications held pt is too sedated. made aware. Patient cont on 1:1 for safety.
[2017-10-10 16:00] VITALS: BP 121/79
--- NOTE | 2017-10-10 18:00 | NUR ---
TORADOL REASSESSMENT Per pt Toradol was effective in reducing her pain 2/10.
--- NOTE | 2017-10-10 19:18 | NUR ---
END OF SHIFT NOTE Patient presented with anxiety, agitation, lower back pain, nausea. Patient received scheduled medications and PRN Toradol x2 noted to be effective. Afternoon medications was held due to pt was too sedated MD aware. Patient still noted with unsteady gait. MD order PT Eval. Patient cont on 1:1 for safety. Patient did not attend any groups and activities. Vital signs WNL. Skin intact warm and dry to touch. Safety measures in place. Patient endorsed to night nurse in stable condition.
--- NOTE | 2017-10-10 19:30 | NUR ---
START OF SHIFT Pt 22 y/o female admitted for medically supervised withdrawals. Pt received sleeping in her bed in a position,breathing is even and non labored,Pt is in deep sleep,minimally responsive to verbal stimuli. Skin warm and moist to touch.Pt is disheveled and unkempt. Pt continues on Ativan and Subutex taper as ordered.All safety measures in place,with call light within reach and sitter at bedside.Will continue to monitor for safety.
[2017-10-10 20:00] VITALS: BP 90/59
[2017-10-11] VITALS: BP 99/62
[2017-10-11] MEDS: METHOCARBAMOL 750 MG TABLET PO PRN ×2 (00:54→13:18)
--- NOTE | 2017-10-11 00:56 | NUR ---
PRN ROBAXIN GIVEN ORDERDED FOR C/O MYALGIA.WILL MONITOR.
--- NOTE | 2017-10-11 02:00 | NUR ---
PRN F/U PT STATES FEELING BETTER.ROBAXIN IS EFFECTIVE.
[2017-10-11 04:00] VITALS: BP 92/56
--- NOTE | 2017-10-11 06:49 | NUR ---
END OF SHIFT Pt is 22 y/o female admitted for medically supervised withdrawals;pt is a/o x 4;she is on close observation for unsteady gait;appearance is disheveled and unkempt,there is food lying all over her room. Pt continues on Ativan and subutex taper as ordered.Subutex was held last night due to low blood pressure;prn Robaxin was given x 1 for c/o myalgia and was effctive.Pt slept 8 hrs,fluid intake was 855 mls,voided x 1.Last COWS/CIWA = 6.All safety measures in place,with call light within reach and sitter at bedside.Will continue to monitor for safety.
--- NOTE | 2017-10-11 07:45 | NUR ---
START OF SHIFT 317 Received report from date night caregiver nurse. Pt is lying in bed resting with eyes closed. She has a 1:[address] for safety. She is a 22 yo female admitted to [facility] on 10/05 for opiate and BZD dependence with a h/o using methamphetamine and marijuana use. She is ordered Ativan and Subutex tapers. Breathing is even and unlabored. Skin is warm and moist to the touch. Pt appears disheveled with empty wrappers and bottles around the bed.She slept for 7 hours. Safety measures in place.
[2017-10-11 08:00] VITALS: BP 107/65
[2017-10-11] MEDS ORDERED: BUPRENORPHINE HCL 2 MG TAB.SUBL SL SCH (09:00)
[2017-10-11] MEDS ORDERED: LORAZEPAM 1 MG TABLET PO SCH (09:00)
[2017-10-11] MEDS ORDERED: DIAZEPAM 5 MG TABLET PO SCH (09:00)
[2017-10-11] MEDS: LEVETIRACETAM 500 MG TABLET PO SCH ×2 (10:21→21:50)
[2017-10-11] MEDS: BACLOFEN 10 MG TABLET PO SCH ×3 (10:22→21:50)
[2017-10-11] MEDS: GABAPENTIN 300 MG CAPSULE PO SCH ×3 (10:22→21:49)
[2017-10-11] MEDS: MULTIVITAMINS,THERAPEUTIC TABLET PO SCH (10:22)
[2017-10-11] MEDS: THIAMINE HCL 100 MG TABLET PO SCH (10:23)
[2017-10-11] MEDS: SERTRALINE HCL 50 MG TABLET PO SCH (10:23)
[2017-10-11] MEDS: FOLIC ACID 1 MG TABLET PO SCH (10:23)
[2017-10-11] MEDS: LIDOCAINE 5% PATCH TD SCH (10:26)
[2017-10-11] MEDS: DIVALPROEX 250 MG TABLET.DR PO SCH ×3 (10:33→21:50)
[2017-10-11] MEDS: KETOROLAC TROMETHAMINE 60 MG INJ IM PRN ×2 (10:35→21:49)
--- NOTE | 2017-10-11 10:40 | NUR ---
PRN Toradol Pt reports right hip pain 9/10 that is radiating down the right leg and across the back. PRN Toradol administered.
--- NOTE | 2017-10-11 11:30 | NUR ---
Nursing Note PT evaluated patient today. She was able to ambulate around the unit. PT recommends having someone at home assist her up and down the stairs. Pt has refused further inpatient treatment after discharge. She reports she has someone at home available to assist.
--- NOTE | 2017-10-11 11:40 | NUR ---
PRN Toradol reassessment PRN Toradol effective. Pt's reports pain level is reduced to 3/10 and it is easier for her to ambulate.
[2017-10-11 12:00] VITALS: BP 107/68
[2017-10-11] MEDS ORDERED: PANTOPRAZOLE SODIUM 40 MG TABLET.DR PO SCH (13:00)
--- NOTE | 2017-10-11 13:20 | NUR ---
PRN Robaxin Pt c/o right hip pain 03/25. PRN Robaxin administered.
[2017-10-11] MEDS ORDERED: LEVE500T9 PO (13:55)
[2017-10-11] MEDS ORDERED: CLON0.1T14 PO (13:55)
[2017-10-11] MEDS ORDERED: SERT50TA12 PO (13:55)
[2017-10-11] MEDS ORDERED: OLAN5TAB6 PO (13:55)
[2017-10-11] MEDS ORDERED: METH-406 PO (13:55)
[2017-10-11] MEDS ORDERED: GABA-534 PO (13:55)
[2017-10-11] MEDS ORDERED: NICO-671 TD (13:55)
[2017-10-11] MEDS ORDERED: DIVA250T4 PO (13:55)
[2017-10-11] MEDS ORDERED: BACL10TA PO (13:55)
[2017-10-11] MEDS ORDERED: PANT40TA2 PO (13:55)
[2017-10-11] MEDS ORDERED: DICY20TA28 PO (13:55)
[2017-10-11] MEDS ORDERED: LIDO30AD10 TD (13:55)
--- NOTE | 2017-10-11 14:18 | NUR ---
PRN Robaxin reassessment PRN Robaxin somewhat effective. Pt's pain level is reduced to 6/10.
[2017-10-11] MEDS: ACETAMINOPHEN ES 500 MG TABLET PO SCH ×2 (15:56→21:49)
[2017-10-11 16:00] VITALS: BP 105/69
--- NOTE | 2017-10-11 19:04 | NUR ---
END OF SHIFT NOTE Patient presented with anxiety, agitation, lower back pain, nausea. Patient received scheduled medications and PRN Toradol x1, Robaxin noted to be effective. Patient still noted with unsteady gait. Patient seen and evaluated by PT. Received care from primary nurse at 1600. Patient cont on 1:1 for safety. Patient did not attend any groups and activities. Vital signs WNL. Patient scheduled for discharge in AM. Skin intact warm and dry to touch. Safety measures in place. Patient endorsed to night nurse in stable condition.
--- NOTE | 2017-10-11 19:30 | NUR ---
START OF SHIFT Pt 22 y/o female admitted for medically supervised withdrawals.Pt continues to remain on close supervision for safety d/t unsteady gait. Pt received sleeping in her bed,breathing is even and non labored,minimally responsive to verbal stimuli. Skin warm and dry to touch.Pt is disheveled and unkempt. Pt has completed Ativan and Subutex taper and is scheduled for DC tomorrow.All safety measures in place,with call light within reach and sitter at bedside.Will continue to monitor for safety.
[2017-10-11 20:00] VITALS: BP 91/50
--- NOTE | 2017-10-11 20:00 | NUR ---
COWS/CIWA DEFERRED DUE TO PT BEING ASLEEP.
--- NOTE | 2017-10-11 21:56 | NUR ---
PRN TORADOL IM GIVEN ORDERED FOR C/O RIGHT HIP PAIN.PAIN LEVEL IS 9/10.WILL MONITOR FOR EFFECTIVENESS.
--- NOTE | 2017-10-11 23:00 | NUR ---
PRN F/U PRN TORADOL IM IS EFFECTIVE.PAIN LEVEL REDUCED TO 3/10.
--- NOTE | 2017-10-12 00:12 | NUR ---
RN note AMA Patient became agitated when she claimed that one of the patients told her that her boyfriend left the facility AMA. Patient was explained the risks of leaving AMA and the benefits of staying and waiting it out for her scheduled discharge tomorrow. Dr. Pandey and Arnaldo were made aware. Patient was adamant and became verbally abusive in the hallway. Patient was spoken to regarding her behavior. Patient signed AMA papers and was given the list of community resources. Patient left the unit at 0012 without complications nor SOB noted.
== END 2017-10-12 00:12 | disposition left against medical advice (07) | DRG 894 ==
LOC: SRC 22:17
PROVIDERS: ADMIT Internal Medicine; ATTEND Internal Medicine
PROC: HZ2ZZZZ Detoxification Services for Substance Abuse Treatment (ICD-10-PCS; principal; 2017-10-05)
PROC: HZ31ZZZ Individual Counseling for Substance Abuse Treatment, Behavioral (ICD-10-PCS; 2017-10-06)
PROC: HZ41ZZZ Group Counseling for Substance Abuse Treatment, Behavioral (ICD-10-PCS; 2017-10-06)
DX: F10.239 Alcohol dependence with withdrawal, unspecified (principal); Z86.74 Personal history of sudden cardiac arrest; F33.1 Major depressive disorder, recurrent, moderate; R56.9 Unspecified convulsions; F13.239 Sedative, hypnotic or anxiolytic dependence with withdrawal, unspecified; F11.23 Opioid dependence with withdrawal; F15.10 Other stimulant abuse, uncomplicated; B19.20 Unspecified viral hepatitis C without hepatic coma; Y90.9 Presence of alcohol in blood, level not specified; F17.210 Nicotine dependence, cigarettes, uncomplicated; Z87.11 Personal history of peptic ulcer disease; Z91.5 Personal history of self-harm; F41.0 Panic disorder [episodic paroxysmal anxiety]; G89.29 Other chronic pain; M54.5 Low back pain; Z81.1 Family history of alcohol abuse and dependence; Z79.899 Other long term (current) drug therapy; F91.9 Conduct disorder, unspecified; M25.551 Pain in right hip
CPT/HCPCS: 36415; 70030-TC; 73521; 80307; 80324; 80346; 80349; 80361; 83735; 84703; 85025; 86592; 86705; 86803; 87340; 87806; A9150; G0480; J1885; J2060; J3411; J3490

== ENCOUNTER 2018-03-08 20:58 | Inpatient (IN) | payer BC, OTHER ==
[~2018-03-08] VITALS: Ht 160 cm; Wt 49.9 kg
[~2018-03-08 20:58] MED LIST changes: +BACL10TA PO; +CLON0.1T14 PO; +DICY20TA28 PO; +DIVA250T4 PO; +GABA-532 PO; +GABA-534 PO; +LEVE500T9 PO; +LIDO30AD10 TD; +METH-406 PO; +NICO-671 TD; +OLAN5TAB6 PO; +PANT40TA2 PO; +SERT50TA12 PO
--- NOTE | 2018-03-09 00:05 | NUR ---
INTAKE ASSESSMENT BP: 91/53, HR: 90, RR:16, SpO2: 98%, T:98.0 Pt is in stable condition and is able to be admitted on the unit. Pt reports she had 8 seizures related to benzodiazepine withdrawal and is here for medical clearance. She reports she has been receiving a Valium and Subutex taper at [facility] and has not used Xanax since 02/25/18 and Heroin since 02/26/18. Unit protocols regarding medications and vitals signs Q4H were explained. Pt verbalized understanding. Will continue admission upon arrival on the unit.
[2018-03-09] MEDS ORDERED: DIAZEPAM 5 MG TABLET PO PRN (00:15)
[2018-03-09] MEDS ORDERED: IBUPROFEN 400 MG TABLET PO PRN (00:15)
[2018-03-09] MEDS ORDERED: LORAZEPAM 2 MG/1 ML VIAL IM PRN (00:15)
[2018-03-09] MEDS ORDERED: MIRALAX 17 GM POWD.PACK PO PRN (00:15)
[2018-03-09] MEDS ORDERED: DICYCLOMINE HCL 20 MG TABLET PO PRN (00:15)
[2018-03-09] MEDS ORDERED: HYDROXYZINE PAMOATE 25 MG CAPSULE PO PRN (00:15)
[2018-03-09] MEDS ORDERED: MAG HYDROX/AL HYDROX/SIMETH 30 ML LIQUID UDC PO PRN (00:15)
[2018-03-09] MEDS ORDERED: diphenhydrAMINE 50 MG CAPSULE PO PRN (00:15)
[2018-03-09] MEDS ORDERED: ONDANSETRON 4 MG/2 ML VIAL IM PRN (00:15)
[2018-03-09] MEDS ORDERED: LOPERAMIDE HCL 2 MG CAPSULE PO PRN (00:15)
[2018-03-09] MEDS ORDERED: BUPRENORPHINE HCL 2 MG TAB.SUBL SL PRN (00:15)
[2018-03-09] MEDS ORDERED: ONDANSETRON ODT 4 MG TAB.RAPDIS SL PRN (00:15)
[2018-03-09] MEDS ORDERED: MAGNESIUM HYDROXIDE 30 ML LIQUID UDC PO PRN (00:15)
[2018-03-09] MEDS ORDERED: CLONIDINE HCL 0.1 MG TABLET PO PRN ×2 (00:15→12:00)
[2018-03-09] MEDS ORDERED: DIAZEPAM 10 MG TABLET PO PRN (00:15)
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
[2018-03-09] MEDS ORDERED: DIAZ10TA PO (00:34)
[2018-03-09] MEDS ORDERED: QUET100T PO (00:34)
[2018-03-09] MEDS ORDERED: BUPR2TAB3 SL (00:34)
[2018-03-09] MEDS ORDERED: DIVA500T2 PO (00:34)
[2018-03-09] MEDS ORDERED: MUPI22OI2 (00:34)
[2018-03-09] MEDS ORDERED: MELO-107 PO (00:34)
[2018-03-09] MEDS ORDERED: METH-406 PO (00:34)
[2018-03-09] MEDS ORDERED: LORA2TAB95 PO (00:34)
[2018-03-09] MEDS ORDERED: GABA800T2 PO (00:34)
[2018-03-09] MEDS ORDERED: orajel TP (00:54)
[2018-03-09 00:56] LABS: *AMPHETAMINE, URINE NEGATIVE (NEGATIVE); *BARBITURATE, URINE NEGATIVE (NEGATIVE); *CANNABINOID, URINE NEGATIVE (NEGATIVE); *COCCAINE, URINE NEGATIVE (NEGATIVE); *OPIATE, URINE POSITIVE (NEGATIVE); *PHENCYCLIDINE SCREEN,URINE NEGATIVE (NEGATIVE)
[2018-03-09 00:58] LABS: *URINE HCG, QUAL NEGATIVE (NEGATIVE)
[2018-03-09 01:04] LABS: BASOPHILS % (AUTO) 0.4 % (0.0-2.0); EOSINOPHILS # (AUTO) 0.1 K/uL (0.0-0.7); EOSINOPHILS % (AUTO) 1.5 % (0.0-7.0); HEMATOCRIT 38.1 % (31.2-41.9); HEMOGLOBIN 12.6 g/dL (10.9-14.3); LYMPHOCYTES # (AUTO) 1.7 K/uL (20.0-40.0); LYMPHOCYTES % (AUTO) 26.4 % (20.5-51.5); MEAN CORPUSCULAR HEMOGLOBIN 28.4 uug (24.7-32.8); MEAN CORPUSCULAR HGB CONC 33 g/dL (32.3-35.6); MEAN CORPUSCULAR VOLUME 86.1 fL (75.5-95.3); MONOCYTES # (AUTO) 0.4 K/uL (2.0-10.0); MONOCYTES % (AUTO) 5.4 % (0.0-11.0); NEUTROPHILS # (AUTO) 4.4 K/uL (1.8-8.9); NEUTROPHILS % (AUTO) 66.3 % (38.5-71.5); PLATELET COUNT (AUTO) 275 K/uL (179-408); RED BLOOD CELL COUNT(AUTO) 4.43 MIL/uL (3.63-4.92); WHITE BLOOD COUNT (AUTO) 6.6 K/uL (3.8-11.8)
[2018-03-09 01:18] LABS: ALANINE AMINOTRANSFERASE 34 U/L (14-59); ALKALINE PHOSPHATASE 97 U/L (50-136); AMYLASE 58 U/L (25-115); ASPARTATE AMINOTRANSFERASE 22 U/L (15-37); BILIRUBIN,TOTAL 0.2 mg/dL (0.2-1.0); CARBON DIOXIDE 26 mmol/L (21-32); CHLORIDE 101 mmol/L (98-107); CREATININE 0.8 mg/dL (0.6-1.3); GLUCOSE 87 mg/dL (74-106); LIPASE 104 U/L (73-393); MAGNESIUM 2.2 mg/dL (1.8-2.4); POTASSIUM 4.6 mmol/L (3.5-5.1); TOTAL PROTEIN, SERUM 7.8 g/dL (6.4-8.2); UREA NITROGEN, BLOOD 13 mg/dL (7-18)
[2018-03-09 01:29] LABS: THYROID STIMULATING HORMONE 1.098 mIU/mL (0.358-3.740)
[2018-03-09] MEDS: DIAZEPAM 10 MG TABLET PO PRN ×3 (01:47→23:37)
--- NOTE | 2018-03-09 01:47 | NUR ---
PRN Toradol IM and PRN Valium administration Patient anxious, restless, hot and cold sweats, generalized discomfort, mouth pain, muscle aches, jaw pain, panic feeling, restless legs and piloerection. CIWA 11.
[2018-03-09 01:48] LABS: ETHANOL < 3 MG/DL (0-0)
[2018-03-09] MEDS: KETOROLAC TROMETHAMINE 30 MG INJ IM PRN ×3 (01:51→17:31)
--- NOTE | 2018-03-09 02:17 | NUR ---
PRN Toradol IM re-assessment Patient states Toradol helpful and effective. Pain tolerable at this time. Will continue to monitor.
--- NOTE | 2018-03-09 02:47 | NUR ---
PRN Valium re-assessment Patient in bed with eyes closed. Respiration even and unlabored. Valium deferred. Will continue to monitor,
[2018-03-09 04:00] VITALS: BP 100/68
--- NOTE | 2018-03-09 07:34 | NUR ---
End of shift note Patient slept 3 hours. Fluid intake 296 ml. voided x 1. No BM. Patient was given PRN Toradol IM and Valium. Patient presents with anxiety, restlessness and generalized body aches. Patient was put on 1:1 for safety. Patient had multiple seizure prior to admission. Patient noted lump on left breast, she states she noticed it 2 weeks ago. Patient has broken tooth and requesting to have Soft food. Endorsed to next shift. Safety measures in place. Call light in reach. Will continue to monitor.
--- NOTE | 2018-03-09 07:36 | NUR ---
Start of Shift Report received from restaurant shift leader nurse Patient is a 22 year old female who presents to [facility] for medically supervised withdrawal from Opiate and Benzo. Per restaurant shift leader nurse Last COWS 9 and CIWA 11 Pt is currently not on a taper but has PRN medications in case of withdrawal symptoms. Upon start of shift pt noted laying in bed with eyes closed even non-labored breathing. When greeted pt stated "Good morning, I'm feeling some symptoms right now but I'm good at the moment" Reoriented pt and reinforced the PRN medication she has in case of withdrawal symptoms. Pts room appears unorganized and messy pt has her clothes and water bottles laying around the room. Pt appears anxious and presented with sweats. During assessment pt is A&Ox4, lung sounds clear bilaterally. Radial pulse is present regular. Abdomen soft non-tender. Pts skin warm and intact, pt denies any pain at the moment. Encouraged pt to drink plenty of fluids to help facilitate detox. Pt received PRN Valium 10mg for withdrawal symptoms pt also received PRN Toradol for pain which both were effective per restaurant shift leader nurse. Pt slept a total of 3 hours last night. Bed in lowest position, side rails upx2, Call light functioning and within reach, all needs attended and met. will continue to monitor.
[2018-03-09 08:00] VITALS: BP 112/73
[2018-03-09] MEDS: MULTIVITAMINS,THERAPEUTIC TABLET PO SCH (09:00)
--- NOTE | 2018-03-09 10:50 | NUR ---
Update Pt stated that she last used on February 26 and that was the day that she was admitted to the [facility] she stayed there until March 08 and then was transferred here to [facility] due to having seizures and to get medical clearance. Pt states she wants to only stay here for a day and go back to her facility at the [facility].
--- NOTE | 2018-03-09 11:02 | NUR ---
PRN MEDICATION Pt presented with symptoms of withdrawals, sweats, shakes, tremors, anxiety and agitation CIWA score of 12 PRN Valium 10mg administered as per MD orders, will continue to monitor pt.
[2018-03-09 12:00] VITALS: BP 124/78
--- NOTE | 2018-03-09 12:00 | NUR ---
CIWA/COWS SCORE Patient has a CIWA score of 10 and COWS 9 pt presents with Tremors, sweats, anxiety, agitated somewhat more than normal, mild tactile disturbance, chills and a flushed face difficulty sitting still, and piloerection of skin.
--- NOTE | 2018-03-09 12:02 | NUR ---
PRN REASSESSMENT Medication effective pt reported a reduction in anxiety and agitation, her CIWA dropped to 10, all needs met will continue to monitor
[2018-03-09] MEDS: GABAPENTIN 100 MG CAPSULE PO SCH ×2 (13:41→17:24)
--- NOTE | 2018-03-09 14:12 | NUR ---
Clarification of Treatment/Seizure Hx Per patient, she was at [facility] for 10 days before she was transferred to [facility] for Medical Clearance. Before being admitted to [facility], she reported taking 10-20 mg Xanax daily since May 2017. Per patient, she had one seizure episode at [facility], which prompted staff to transfer her to [facility] for Medical Clearance before she can return.
--- NOTE | 2018-03-09 14:20 | NUR ---
Clarification of Treatment: Contacted [facility] regarding pt's medication schedule from their treatment facility. According to [facility], Pt was on a Subutex and Valium taper with PRN Ativan. Pt last received 2mg of Subutex on 03/05/18 at 0900 and 10mg Valium on 03/05/18 at 0900. Pt was continuing her 2mg PRN Ativan until 03/08/18 until pt had a seizure episode and was transferred to [facility]. Pt was discharged back to [facility] and continued PRN Ativan. Last 2mg Ativan was at 03/08/18 at 2158. Pt then transferred to [facility].
[2018-03-09] MEDS ORDERED: 5 DAY TAPER VALIUM-SERENITY PROTOCOL PO PRN (15:15)
[2018-03-09 16:00] VITALS: BP 134/83
--- NOTE | 2018-03-09 17:31 | NUR ---
PRN Medication Pt. in room complaining of 7/10 jaw pain. Pt. presents with diaphoresis and grimaces when she touches her jaw. Administered Toradol IM at this time to help manage pain. Will continue to monitor pt. for medication effectiveness and safety.
--- NOTE | 2018-03-09 18:12 | NUR ---
PRN Re-Assessment Pt. states that her pain level now is between a 3-4 /10. Pt. states that she feels like she can eat her dinner now. Medication effective. Will continue to monitor pt.'s behavior for safety.
--- NOTE | 2018-03-09 19:12 | NUR ---
End of Shift 317 Report given to night filler nurse patients VS monitored closely [id number]. Withdrawal symptoms were closely monitored. Initial COWS 10 CIWA 12 . Patient encouraged adequate PO fluid intake as tolerated. Patient presented with tremors chills, agitation, and anxiety during the day. Pt was visited by MD and placed on a 5 day Valium taper. Pt laid in bed all day came out to smoke on occasions but mostly laid in bed. Educated pt on s/e of the medications and what to look out for, pt also educated on signs and symptoms that should be reported to MD. Pt ate all of the meals today. Last COWS 9 CIWA 15. Per patient, Valium has been helping with the withdrawal symptoms. Pt received PRN Valium 10mg for withdrawal symptoms, which was effective. Patient encouraged to attend group therapies/sessions to learn new coping skills to recent relapse, patient denies SI/HI. Participated in group and therapy sessions. All needs met and attended
--- NOTE | 2018-03-09 19:18 | NUR ---
Start of Shift Patient Received. Per endorsement, patient continues on PRN medications for increased signs and symptoms of withdrawal. Patient noted with history of seizures with last seizure reported yesterday 03/08/18. She received PRN Toradol x2 and Valium with medication noted to be effective. Last noted COWS 9 and CIWA 15. Patient requests to speak to MD in regards to medications. Will relay to MD. Upon rounds, patient is noted in bed awake, alert and verbally responsive. Patient states "I need to take my medications because I missed a scheduled dose of Valium." Patient appears disheveled, unkept and unwashed hair, dirty finger nails, tremulous, blunt and flat affect. Explained to patient that she did not miss any scheduled medications and reviewed due medications with her. Patient verbalized understanding. All needs attended to promptly. Will continue plan of care as ordered.
[2018-03-09 20:01] VITALS: BP 121/67
[2018-03-09] MEDS: LEVETIRACETAM 250 MG TABLET PO SCH (20:18)
[2018-03-09] MEDS: DIVALPROEX 500 MG TABLET.DR PO SCH (20:18)
--- NOTE | 2018-03-09 20:28 | NUR ---
PRN Medication Administration Patient is noted verbalizing increased body aches, hot and cold flashes, increased anxiety, intermittent nausea, "skin crawling", body aches, and tremors. CIWA noted to be 21 and COWS 15. PRN Zofran, Valium 20mg, and Subutex 4mg administered. Will continue to monitor.
[2018-03-09] MEDS ORDERED: LEVETIRACETAM 500 MG TABLET PO SCH (21:00)
--- NOTE | 2018-03-09 21:30 | NUR ---
PRN Medication Administration Patient is noted returning from smoking patio and is preoccupied with watching movies in the activities room. patient is able to verbalize "the medications helped but I really need to meloxicam. its the one thing that helps me." Relayed to MD with ok to place a one time order when patient needs medication. Patient remains in activities room. Will continue to monitor.
[2018-03-09] MEDS ORDERED: MELOXICAM 7.5 MG TABLET PO SCH (23:10)
[2018-03-09] MEDS: QUETIAPINE FUMARATE 100 MG TABLET PO PRN (23:38)
--- NOTE | 2018-03-09 23:40 | NUR ---
PRN Medication Administration Patient is noted verbalizing increased anxiety, tremulous, and restlessness. Patient is also verbalizing increased pain to oral area 7/10 and inability of falling asleep. PRN Mobic, Valium 10, and Seroquel administered. Patient is also verbalizing episode of loose stool and states "I dont want to take Imodium because will constipate me and then it will be hard for me to go to the bathroom later." Risks and benefits explained. Patient still refused. Will continue to monitor.
[2018-03-10 00:25] VITALS: BP 122/71
--- NOTE | 2018-03-10 00:30 | NUR ---
PRN Medication Reassessment/PRN medication Administration Patient is noted in her room and returned from shower. Patient states "these meds finally are kicking in. Im starting to get really tired. But I will take the Imodium because I went again." PRN Valium, Mobic, and Seroquel noted to be effective. PRN Imodium administered. Will continue to monitor.
--- NOTE | 2018-03-10 01:30 | NUR ---
PRN Medication Reassessment Patient is in bed awake and able to verbalize "I haven't gone to the restroom again. The medication helped." PRN Imodium noted to be effective. Will continue to monitor.
[2018-03-10 04:15] VITALS: BP 112/67
--- NOTE | 2018-03-10 04:15 | NUR ---
COWS and CIWA Patient is noted in bed with eyes closed. Breathing even and non labored. Patient is easily awakened to verbal stimuli. explained to patient that vitals were to be rendered. Vitals rendered and patient is noted to easily fall back to sleep. COWS and CIWA not able to be completed as per order. Will continue to monitor.
--- NOTE | 2018-03-10 07:05 | NUR ---
End of Shift Patient is in bed sleeping. Breathing even and non labored. Patient set to start a modified 5 day Valium taper today 03/10/18 with PRN Subutex available. Patient received PRN Zofran, Valium 10, Valium 20, Subutex 4mg, Seroquel, Mobic, and Imodium with medications noted to be effective. Last noted COWS 6 and CIWA 5. Patient noted to sleep a total of 5 hours. Patient is noted with increased anxiety, hot and cold flashes, intermittent nausea, body aches, and tremulous to touch. All needs attended to promptly. Will endorse to continue plan of care as ordered.
--- NOTE | 2018-03-10 07:38 | NUR ---
BEGINNING OF SHIFT Patient with admitting Dx: Opiate/BZO withdrawal. Patient admitted on 03/08/2018. Patient endorsement report received from night filler nurse, all pertinent information was discussed. Patient slept for 5 hours, received PRN: Valium 10mg, Valium 20 mg, Subutex 4mg, Seroquel, Mobic, And Imodium. Patient slept for 5 hours. Last COW: 6, CIWA: 5. Patient continues on 5 day Valium taper as ordered and is currently scheduled to begin day 1 of taper. Patient has PRN medications available for s/sx of opiate withdrawal. Will monitor closely throughout shift. Patient received in bed with eyes closed, respirations even and unlabored, responsive to verbal stimuli, will educate patient regrading plan of care for the day and medication regimen. Safety measures in place. call light kept with in reach.
[2018-03-10 08:30] VITALS: BP 91/65
[2018-03-10] MEDS: DIAZEPAM 10 MG TABLET PO SCH ×4 (08:35→20:39)
[2018-03-10] MEDS: KETOROLAC TROMETHAMINE 30 MG INJ IM PRN (08:35)
[2018-03-10] MEDS: MULTIVITAMINS,THERAPEUTIC TABLET PO SCH (08:35)
[2018-03-10] MEDS: GABAPENTIN 100 MG CAPSULE PO SCH ×3 (08:35→16:58)
[2018-03-10] MEDS: LEVETIRACETAM 250 MG TABLET PO SCH ×2 (08:35→20:39)
--- NOTE | 2018-03-10 08:35 | NUR ---
PRN TORADOL Patient reports 9/10 generalized pain and jaw pain. Provided with non pharmacological interventions with no relief, administered Toradol Inj as ordered, well tolerated, well monitor effectiveness of medication.
--- NOTE | 2018-03-10 08:45 | NUR ---
REFUSED PPD Patient reports she received a PPD, approximately one month ago, as per patient it was negative, and refused to do another one. MD notified. Will continue to monitor. patient afebrile, no cough on congestion noted.
[2018-03-10] MEDS ORDERED: TUBERCULIN,PURIF.PROT.DERIV. 5 TU/0.1 ML TEST ID ONE ×2 (09:00)
--- NOTE | 2018-03-10 09:00 | NUR ---
COW/CIWA ASSESSMENT Patient in bed, Awake, alert and oriented x4, Appears unkempt, unwashed/uncombed hair, and disheveled. Patients room noted with clothes thrown on floor, spilled drinks, and inability to perform ADLs without prompting. Patient has a worried, and anxious facial expression. Noted with flat affect and labile mood. patient exhibited the following s/sx of withdrawal during assessment: nausea, tremors, sweats, anxiety, agitation, chills, decreased appetite, depression, difficulty concentrating, emotional volatility, generalized discomfort, increased emotional amplitude, malaise, muscle aches, arthralgias, restlessness, sensitivity to light and sound. Patient with CIWA score of: 20, and COW score of: 9. Patient continues on 5 day Valium taper as ordered and is currently on day 1 of taper. Patient encouraged adequate PO fluid intake as tolerated. encouraged patient to practice self soothing techniques such as progressive muscle relaxation. Safety measures are in place. Will continue to monitor closely.
--- NOTE | 2018-03-10 09:05 | NUR ---
TORADOL REASSESSMENT Patient reports medication is helping, current pain level 7/10, will continue to monitor closely.
[2018-03-10 10:08] LABS: HEPATITIS B SURFACE AG Negative (Negative)
[2018-03-10] MEDS: ACETAMINOPHEN 325 MG TABLET PO PRN ×2 (11:13→20:39)
--- NOTE | 2018-03-10 11:14 | NUR ---
PRN TYLENOL Patient c/o 6/10 jaw pain. Administered Tylenol 650mg PO as ordered, will monitor effectiveness of medication.
--- NOTE | 2018-03-10 12:14 | NUR ---
TYLENOL REASSESSMENT Patient reports medication somewhat effective, current pain level 4/10, will continue to monitor.
--- NOTE | 2018-03-10 12:18 | NUR ---
HEP C RESULTS Dr. Richter notified of patients Hep C Results as per MD he will educate patient.
[2018-03-10] MEDS: ENSURE WITH FIBER 237 ML LIQUID (CHOCOLATE) PO SCH ×2 (12:30→17:00)
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
[2018-03-10 12:45] VITALS: BP 108/67
--- NOTE | 2018-03-10 13:00 | NUR ---
COW/CIWA ASSESSMENT Continues to exhibit the following s/sx of withdrawal: nausea, tremors, sweats, anxiety, agitation, chills, decreased appetite, depression, difficulty concentrating, emotional volatility, generalized discomfort, increased emotional amplitude, malaise, muscle aches, arthralgias, restlessness, sensitivity to light and sound. Patient with CIWA score of: 20, and COW score of: 9. Encouraged to attend group therapies/sessions to learn new coping skills to prevent relapse. Safety measures are in place. Will continue to monitor closely.
[2018-03-10 16:56] VITALS: BP 97/63
[2018-03-10] MEDS: MELOXICAM 7.5 MG TABLET PO PRN (16:58)
--- NOTE | 2018-03-10 16:58 | NUR ---
PRN MOBIC Patient c/o jaw pain 03/25, provided with non pharmacological interventions with no relief, will monitor effectiveness of mediations.
--- NOTE | 2018-03-10 17:00 | NUR ---
COW/CIWA ASSESSMENT Continues to exhibit the following s/sx of withdrawal: nausea, tremors, sweats, anxiety, agitation, chills, decreased appetite, depression, difficulty concentrating, emotional volatility, generalized discomfort, increased emotional amplitude, malaise, muscle aches, arthralgias, restlessness, sensitivity to light and sound. Patient with CIWA score of: 19, and COW score of: 18. Will continue to monitor closely.
--- NOTE | 2018-03-10 17:58 | NUR ---
MOBIC REASSESSMENT Patient reports medication effective, decrease in pain, current pain level 5/10, will continue to monitor.
--- NOTE | 2018-03-10 18:56 | NUR ---
END OF SHIFT Patient continues under close observation, continues with ongoing 5 day Valium taper as ordered, patient currently on day 1 of taper. Patient received PRN: Toradol, Tylenol, and Mobic as ordered, medications effective one hour post administration. Patient was started on Ensure supplement during meal times. patient was notified of Hep c Results during shift. Patient refused PPD, as per patient received one month ago. During shift patient presented unkempt, unwashed/uncombed hair, and disheveled. Patients room noted with clothes thrown on floor, spilled drinks, and inability to perform ADLs without prompting. Encouraged to self groom and maintain personal area. Patient has a worried, and anxious facial expression. Noted with flat affect and labile mood.Provided with calming reassurance as needed. Patient encouraged diversional activities to alleviate anxiety. Also encouraged to develop coping skills and utilization of non pharmacological intervention. During shift patient exhibited the following s/sx of withdrawal during assessment: nausea, tremors, sweats, anxiety, agitation, chills, decreased appetite, depression, difficulty concentrating, emotional volatility, generalized discomfort, increased emotional amplitude, malaise, muscle aches, arthralgias, restlessness, sensitivity to light and sound. Patient with last CIWA score of: 19, and COW score of: 8. encouraged patient to practice self soothing techniques such as progressive muscle relaxation. Safety measures are in place. Will continue to monitor closely. Safety measures in place. call light with in reach, patient endorsed to baker helper nurse, all pertinent information discussed.
--- NOTE | 2018-03-10 19:30 | NUR ---
Start of Shift Patient Received. Per endorsement, patient continues on a modified 5 day Valium taper. PRN Subutex was discontinued. New order for PRN Mobic BID for increased pain. Patient received PRN Toradol, Mobic, Tylenol with medications noted to be effective. Last noted CIWA 19. Hep C results relayed to MD. Patient was started on Ensure supplements during meal times. She is noted to refuse PPD. Upon rounds patient is noted in her room and is presented with unkempt, unwashed/uncombed hair, and disheveled. Patients room noted with clothes thrown on floor, and spilled drinks. Patient has a worried and flat facial expression. Last noted CIWA 19. All needs attended to promptly. Will continue plan of care as ordered.
[2018-03-10 20:30] VITALS: BP 111/73
[2018-03-10] MEDS: DIVALPROEX 500 MG TABLET.DR PO SCH (20:39)
[2018-03-10] MEDS: METHOCARBAMOL 750 MG TABLET PO PRN (20:39)
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
--- NOTE | 2018-03-10 21:40 | NUR ---
PRN Medication Reassessment Patient is noted leaving activities room and going out for smoking break. Patient is able to verbalize "the medication helps with the pain." PRN Robaxin and Tylenol noted to be effective. Will continue to monitor.
[2018-03-11] VITALS (7 sets, daily range): BP systolic 95–112; BP diastolic 56–70
[2018-03-11] MEDS: QUETIAPINE FUMARATE 100 MG TABLET PO PRN ×2 (01:35→22:26)
[2018-03-11] MEDS: MELOXICAM 7.5 MG TABLET PO PRN ×2 (01:35→08:57)
--- NOTE | 2018-03-11 01:35 | NUR ---
PRN Medication Administration Patient is noted awake and verbalizing increased pain and inability of falling back to sleep. PRN Mobic and Seroquel administered. Will continue to monitor.
--- NOTE | 2018-03-11 02:35 | NUR ---
PRN Medication Reassessment Patient is noted in bed sleeping. Breathing even and non labored. No facial grimacing or restlessness noted. PRN Mobic and Seroquel noted to be effective. Will continue to monitor.
--- NOTE | 2018-03-11 07:17 | NUR ---
End of Shift Patient is noted in bed sleeping. Breathing even and non labored. No signs of restlessness or discomfort noted. Patient continues on a modified 5 day Valium taper. She received PRN Robaxin, Tylenol, Seroquel, and Mobic with medications noted to be effective. Patient noted to sleep a total of 5 hours. Last noted CIWA 11. She was noted to report chills, body aches, increased anxiety, sweats, and restlessness. All needs attended to promptly. Will endorse to continue plan of care as ordered.
--- NOTE | 2018-03-11 08:02 | NUR ---
BEGINNING OF SHIFT Continues under close observation. Patient with admitting Dx: Opiate/BZO withdrawal. continues on Valium taper as ordered, scheduled to begin day 2 of taper. Patient endorsement report received from mold shifter nurse, all pertinent information was discussed. Patient slept for 8 hours, received PRN: Robaxin, Tylenol, Mobic, and Seroquel. Patient with last CIWA score fo; 11, and COW score of: 5. Will monitor closely throughout shift. Patient received in bed with eyes closed, respirations even and unlabored, responsive to verbal stimuli, will educate patient regrading plan of care for the day and medication regimen. Safety measures in place. call light kept with in reach.
[2018-03-11] MEDS: GABAPENTIN 100 MG CAPSULE PO SCH ×3 (08:56→16:25)
[2018-03-11] MEDS: METHOCARBAMOL 750 MG TABLET PO PRN (08:56)
[2018-03-11] MEDS: ENSURE WITH FIBER 237 ML LIQUID (CHOCOLATE) PO SCH ×3 (08:56→18:17)
[2018-03-11] MEDS: MULTIVITAMINS,THERAPEUTIC TABLET PO SCH (08:56)
[2018-03-11] MEDS: DIAZEPAM 10 MG TABLET PO SCH ×3 (08:57→21:18)
[2018-03-11] MEDS: LEVETIRACETAM 250 MG TABLET PO SCH ×2 (08:57→21:18)
--- NOTE | 2018-03-11 08:57 | NUR ---
PRN ROBAXIN/MOBIC Patient c/o Jaw Pain 02/22, provided with non pharmacological interventions with no relief, no swelling/discoloration were noted. Offered patient heat pack and refused. Administered Mobic For pain, as ordered, will monitor effectiveness of medication. patient also reported myalgia, body aches, muscle spasm of generalized body, Administered Robaxin as ordered, will monitor effectiveness.
--- NOTE | 2018-03-11 09:30 | NUR ---
COW/CIWA ASSESSMENT Patient noted with sad and depressed facial expression. Encouraged to express feeling and provided with calming reassurance. denies SI/HI. Has labile mood and is anhedonic. Patient exhibited the following s/sx of withdrawal during assessment: tremors, diaphoretic, anxious, agitated, fidgety, chills, decreased appetite, difficulty concentrating, emotional volatility, fatigue, generalized discomfort, myalgias, malaise, and low and mid back pain. Patient continues on 5 day Valium taper as ordered and is currently on day 2 of taper. Patient with CIWA score of: 12, and COW score of: 6. Patient encouraged adequate PO fluid intake as tolerated. Will continue to monitor closely.
--- NOTE | 2018-03-11 09:57 | NUR ---
MOBIC/ROBAXIN REASSESSMENT Patient reports medications were somewhat effective, current Jaw Pain level 4/10. Reports a decrease in body aches, and no further c/o muscle spasm noted, encouraged patient to increase PO fluid intake as tolerated.
--- NOTE | 2018-03-11 13:00 | NUR ---
COW/CIWA ASSESSMENT Patient continues to exhibit the following s/sx of withdrawal: tremors, diaphoretic, anxious, agitated, fidgety, chills, decreased appetite, difficulty concentrating, emotional volatility, fatigue, generalized discomfort, myalgias, malaise, and low and mid back pain. COW: 6 CIWA: 12. Will continue to monitor.
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
--- NOTE | 2018-03-11 19:05 | NUR ---
END OF SHIFT Continues with ongoing 5 day Valium taper as ordered, patient currently on day 2 of taper. Monitored closely throughout shift. Patients has clothes thrown on floor, also noted patient is disheveled, uncombed hair, poor regards to hygiene. Encouraged to self groom and maintain personal area. Patient has a worried, and anxious facial expression. Noted with flat affect and labile mood, anhedonic at times.Provided with calming reassurance as needed. Encouraged patient to express feelings as necessary. Patient encouraged diversional activities to alleviate anxiety. Encouraged to attend group therapies/sessions to learn new coping skills to prevent relapse, patient noted attending and participating patient denies any SI/HI. During shift patient refused xray of mandible as per MD orders. per xray military technician they will attempt again at a later time. During shift patient exhibited the following s/sx of withdrawal tremors, diaphoretic, anxious, agitated, fidgety, chills, decreased appetite, difficulty concentrating, emotional volatility, fatigue, generalized discomfort, myalgias, malaise, and low and mid back pain. Patient continues on 5 day Valium taper as ordered and is currently on day 2 of taper. Patient with last CIWA score of: 12, and COW score of: 6.Safety measures are in place. Will continue to monitor closely. Safety measures in place. call light with in reach, patient endorsed to night shift supervisor nurse, all pertinent information discussed.
--- NOTE | 2018-03-11 19:15 | NUR ---
Start of Shift Note: Patient is a 22 y.o female admitted on 03/08/18 for medically supervised withdrawal from Heroin & Xanax use. Patient is alert & oriented x4. She appears disheveled, unkempt, anxious/irritable and depressed mood. Room is cluttered with food and empty bottles on tables. Encourage pt to maintain proper hygiene. She presented with sweating, chills, restlessness, mild body aches & tremors. She also complains of 6/10 jaw pain. Pt continues on her 5-day Valium taper and tolerating well. Last COWS 6 CIWA 12. She received PRN Mobic and Robaxin during day shift and were effective per report. Pt encourage to increase fluid intake for hydration. Educated pt of current plan of care for the night and medication regimen. Safety measures in place. Will continue to monitor patient.
[2018-03-11] MEDS: ACETAMINOPHEN 325 MG TABLET PO PRN (20:35)
--- NOTE | 2018-03-11 20:35 | NUR ---
PRN Tylenol Patient complains of 6/10 jaw pain. She is restless with facial grimacing noted. PRN Tylenol administered as ordered. Will monitor for effectiveness of medication.
[2018-03-11] MEDS: DIVALPROEX 500 MG TABLET.DR PO SCH (21:18)
--- NOTE | 2018-03-11 21:35 | NUR ---
PRN Reassessment Pt verbalized slight relief after Tylenol was given. Pt still noted with 4/10 jaw pain at this time. Will continue to monitor patient.
--- NOTE | 2018-03-11 22:26 | NUR ---
PRN Seroquel Patient complains of inability to fall asleep. PRN Seroquel administered as ordered. Will monitored for effectiveness of medication.
[2018-03-11] MEDS ORDERED: MELOXICAM 7.5 MG TABLET PO ONE (22:30)
--- NOTE | 2018-03-11 23:26 | NUR ---
PRN Reassessment. Pt asleep in bed and appears comfortable. PRN Seroquel effective. Safety measures in place. Will continue to monitor patient.
--- NOTE | 2018-03-12 07:16 | NUR ---
End of Shift Note: Continue to closely monitor patient. She remains alert & oriented x4. She presented with anxiety, agitation, sweating, chills, restlessness, mild body aches & tremors. She continues on her Valium taper and he is tolerating well. Pt received PRN Tylenol & Seroquel during my shift and were effective. Last COWS 6 CIWA is 10. Pt reported taper medication to be effective in decreasing symptoms of withdrawal. She also reports jaw pain from previous injury and takes Mobic for pain. Pt gof a one time order of Mobic from MD and was effective. Pt remained stable and vitals noted WNL. Continue to encourage pt to increase fluid intake for hydration and to attend group activities to learn coping skills. She slept for a total of 6 hours. Fluid intake 1180 ml, Voided 3x with no bowel movement. All needs attended. Safety measures in place. Will endorse pt to day shift nurse.
--- NOTE | 2018-03-12 07:41 | NUR ---
BEGINNING OF SHIFT Patient endorsement reoprt received from fast food shift lead nurse, all pertinent information was discussed. Patient continues under close observation. Patient with admitting Dx: Opiate/BZO withdrawal. continues on Valium taper as ordered, scheduled to begin day 3 of taper. Patient endorsement report received from fast food shift lead nurse, all pertinent information was discussed. Patient slept for 6 hours, received PRN: Tylenol, and Seroquel. Patient with last CIWA score fo; 10, and COW score of: 6. Will monitor closely throughout shift. Patient received in bed with eyes closed, respirations even and unlabored, responsive to verbal stimuli, will educate patient regarding plan of care for the day and medication regimen. Safety measures in place. call light kept with in reach. Will continue to monitor.
[2018-03-12 08:22] VITALS: BP 103/57
[2018-03-12] MEDS: MELOXICAM 7.5 MG TABLET PO PRN ×2 (08:36→20:26)
[2018-03-12] MEDS: DIAZEPAM 5 MG TABLET PO SCH ×4 (08:36→20:26)
[2018-03-12] MEDS: MULTIVITAMINS,THERAPEUTIC TABLET PO SCH (08:36)
[2018-03-12] MEDS: METHOCARBAMOL 750 MG TABLET PO PRN (08:36)
[2018-03-12] MEDS: ENSURE WITH FIBER 237 ML LIQUID (CHOCOLATE) PO SCH ×3 (08:36→17:00)
[2018-03-12] MEDS: LEVETIRACETAM 250 MG TABLET PO SCH ×2 (08:36→20:26)
[2018-03-12] MEDS: GABAPENTIN 100 MG CAPSULE PO SCH ×3 (08:36→16:41)
--- NOTE | 2018-03-12 08:36 | NUR ---
PRN ROBAXIN/MOBIC Patient c/o Jaw Pain 02/22, provided with non pharmacological interventions with no relief. Administered Mobic For pain, as ordered, will monitor effectiveness of medication. patient also reported myalgia, and body aches of generalized body, Administered Robaxin as ordered, will monitor effectiveness.
--- NOTE | 2018-03-12 09:10 | NUR ---
WITHDRAWAL SYMPTOMS Patient exhibited the following s/sx of withdrawal during assessment: tremors, diaphoretic, anxious, agitated, fidgety, chills, decreased appetite, difficulty concentrating, emotional volatility, fatigue, generalized discomfort, myalgias, malaise, and low and mid back pain. Patient with CIWA score of: 11. Patient encouraged adequate PO fluid intake as tolerated. Will continue to monitor closely.
--- NOTE | 2018-03-12 09:36 | NUR ---
MOBIC/ROBAXIN REASSESSMENT Patient reports medications effective, current Jaw Pain level 3/10. Reports a decrease in body aches, Encouraged to practice self soothing techniques such as progressive muscle relaxation. will continue to monitor.
[2018-03-12 12:10] VITALS: BP 112/75
--- NOTE | 2018-03-12 13:00 | NUR ---
WITHDRAWAL SYMPTOMS Patient continues to exhibit the following s/sx of withdrawal during assessment: tremors, diaphoretic, anxious, agitated, fidgety, chills, decreased appetite, difficulty concentrating, emotional volatility, fatigue, generalized discomfort, myalgias, malaise, and low and mid back pain. Patient with CIWA score of: 11. Patient encouraged to participate in group activities, also encouraged diversional activities to alleviate anxiety. Will continue to monitor closely.
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
[2018-03-12 16:30] VITALS: BP 115/61
--- NOTE | 2018-03-12 17:21 | NUR ---
WITHDRAWAL SYMPTOMS Continues to exhibit the following s/sx of withdrawal during assessment: tremors, diaphoretic, anxious, agitated, fidgety, chills, decreased appetite, difficulty concentrating, emotional volatility, fatigue, generalized discomfort, myalgias, malaise, and low and mid back pain. Patient with CIWA score of: 11. Offered PRN medications as needed, but declined. Will continue to monitor.
--- NOTE | 2018-03-12 19:04 | NUR ---
END OF SHIFT Patient continued to exhibit the following s/sx of withdrawal during shift: tremors, diaphoretic, anxious, agitated, fidgety, chills, decreased appetite, difficulty concentrating, emotional volatility, fatigue, generalized discomfort, myalgias, malaise, and low and mid back pain. Patient offered PRN medications as necessary to manage symptoms. Received PRN: Mobic and Robaxin during shift medications were effective one hour post administration. Patient with last CIWA score of: 11. Continues on Valium taper as ordered, detox medication effective at reducing withdrawal symptoms. Patients vital signs WNL during shift. Patient has guarded and worried thoughts. Noted disheveled, has uncombed hair, odorous and has poor regards to hygiene. Encouraged to self groom and maintain personal area. Patient has flat and depressed affect, noted easily overwhelmed. Has anxious/depressed affect. Encouraged patient to express feelings as necessary, provided with non pharmacological interventions as needed. Noted Isolative at times, encouraged participation in group therapies/sessions, patient noted with more willingness to participate, no episodes of SI/HI. Seen By Dr. Richter during shift. Safety measures are in place. Call light with in reach. Patient endorsed to operations supervisor 2nd shift nurse, all pertinent information was discussed.
--- NOTE | 2018-03-12 19:15 | NUR ---
Start of Shift Note: Continue to closely monitor patient. Patient is alert & oriented x4. She continues to appear in a disheveled state, she is unkempt, and has anxious/irritable and depressed mood. Room is cluttered with food and empty bottles on tables. Encourage pt to maintain self care & proper hygiene. Skin is moist/clammy and noted with fine tremors. No N/V/D. She also complains of 7/10 jaw pain and aggravates when pt eats. Pt continues on her 5-day Valium taper and tolerating well. Last CIWA 11. She received PRN Mobic and Robaxin during day shift and were effective per report. Pt encourage to increase fluid intake for hydration. Educated pt of current plan of care for the night and medication regimen. Safety measures in place. Will continue to monitor patient.
[2018-03-12 20:00] VITALS: BP 109/55
[2018-03-12] MEDS: DIVALPROEX 500 MG TABLET.DR PO SCH (20:26)
--- NOTE | 2018-03-12 20:26 | NUR ---
PRN Mobic Patient complained of 7/10 jaw pain. PRN Mobic administered as ordered. Will monitor for effectiveness of medication.
--- NOTE | 2018-03-12 21:26 | NUR ---
PRN Reassessment PRN medication effective. Patient verbalized decreased in pain from 7/10 to 3/10 pain at ths time. Pt in bed and appears comfortable. No facial grimaicng noted. Safety measures in place. Will continue to monitor patient.
[2018-03-12] MEDS: QUETIAPINE FUMARATE 100 MG TABLET PO PRN (23:00)
[2018-03-12] MEDS: ACETAMINOPHEN 325 MG TABLET PO PRN (23:04)
--- NOTE | 2018-03-12 23:04 | NUR ---
PRN Seroquel & Tylenol Patient complains of inability to fall asleep d/t 6/10 pain on her jaw. PRN Tylenol & Seroquel administered as ordered. Will monitor for effectiveness of medication.
--- NOTE | 2018-03-13 00:04 | NUR ---
PRN Reassessment/Vitals deferred Patient asleep in bed and appears comfortable. Pt requested to not wake her up for vitals at this time. Respiration even & unlabored. Safety precautions are in place. Will continue to monitor patient.
--- NOTE | 2018-03-13 04:00 | NUR ---
Vitals/CIWA deferred Patient refused vitals. Patient in bed with eyes close. Patient appears comfortable. Respiration even & unlabored. Unable to assess CIWA at this time and will reassess when pt is awake. Safety measures in place. Will continue to monitor patient.
--- NOTE | 2018-03-13 07:08 | NUR ---
End of Shift Note: Continue to closely monitor patient. She remains alert & oriented x4. She continues to appear in a disheveled state, she is unkempt, and has anxious/irritable and depressed mood. Encourage pt to maintain self care and proper hygiene. She continues on her Valium taper and he is tolerating well. Pt received PRN Tylenol & Mobic for jaw pain & Seroquel for sleep during my shift and were effective. Last CIWA is 10. Pt reported taper medication to be effective in decreasing symptoms of withdrawal. Pt remained stable and vitals noted WNL. Continue to encourage pt to increase fluid intake for hydration and to attend group activities to learn coping skills. She slept for a total of 6 hours. Fluid intake 500 ml, Voided 2x with 1x bowel movement. All needs attended. Safety measures in place. Will endorse pt to day shift nurse.
--- NOTE | 2018-03-13 07:40 | NUR ---
START OF SHIFT Pt is a 22 yr old female, AA&Ox4. Pt was admitted on 03/08/18 for Opiate/Benzo withdrawal and is on 5 day Valium taper. Received report from mechanical test engineer nurse. Pt received Mobic PRN Tylenol PRN and Seroquel PRN during the night. Medication was effective. Last CIWA score was 10. Pt slept for 6 hrs. Pt is currently in bed resting with respirations even and unlabored. Skin is intact, warm and moist to touch. Pt is on fall and seizure precautions. Call light is within reach. Will continue to monitor.
[2018-03-13 08:00] VITALS: BP 100/50
--- NOTE | 2018-03-13 08:30 | NUR ---
CIWA 12 Pt is observed with anxiety with agitation m/b difficulty staying still. Pt is noted with fine tremors and skin is clammy to touch. Pt is c/o jaw pain 7/10. Pt states of having difficulty sleeping at night and is having night terrors. Dr. Kenyon was made aware. CIWA score was 12. Will f/u with Valium 5mg PO as scheduled at 0900.
[2018-03-13] MEDS: ENSURE WITH FIBER 237 ML LIQUID (CHOCOLATE) PO SCH ×3 (08:32→17:31)
[2018-03-13] MEDS: MULTIVITAMINS,THERAPEUTIC TABLET PO SCH (09:21)
[2018-03-13] MEDS: LEVETIRACETAM 250 MG TABLET PO SCH ×2 (09:21→21:09)
[2018-03-13] MEDS: GABAPENTIN 100 MG CAPSULE PO SCH ×3 (09:21→17:27)
[2018-03-13] MEDS: DIAZEPAM 5 MG TABLET PO SCH ×3 (09:21→21:09)
[2018-03-13 12:00] VITALS: BP 110/62
--- NOTE | 2018-03-13 12:00 | NUR ---
CIWA 9 Pt is c/o anxiety, agitation, sweats, and chills. Fine tremors are felt. CIWA score is 9.
[2018-03-13 16:00] VITALS: BP 108/66
--- NOTE | 2018-03-13 16:00 | NUR ---
CIWA 8 Pt is c/o anxiety, agitation, sweats, and chills. Fine tremors are felt. CIWA score is 8.
--- NOTE | 2018-03-13 19:14 | NUR ---
END OF SHIFT Pt is a 22 yr old female, AA&Ox4. Pt has been cooperative with medication regimen and plan of care. Pt has been noted with increase fatigue and remained in her room throughout the day. Pt c/o anxiety, agitation, sweats, chills, night terrors, lack of appetite and states she feels depressed. No SI/HI noted. No PRN's were given during the day. Last CIWA score was 8. Encouraged increase fluid intake for hydration. Safety precautions observed. Call light is within reach. Endorsed to night auditor nurse to continue with care.
--- NOTE | 2018-03-13 19:40 | NUR ---
Start of Shift Note Received 22 y/o female kamala, admitted for medically supervised withdrawal from Heroin and Xanax. Px was placed on modified 6 day Phenobarbital taper started on 03/09/2018. Px is tolerating it. Last reported CIWA 8 at 1600 by AM shift nurse. During the rounds at 1940, px is awake on bed in fowlers position watching TV. Px appears anxious with good eye contact. Px is disheveled. Unfinished food and drinks noted on top of the bed side table and cabinet. Px stated that her anxiety is 6/10 and has jaw and toothache 7/10. Px also complained of night terrors and sweats. Bilateral hand tremors noted. Px also said "I will be discharging tomorrow. I am excited to to go to rehab and finish the program there." Detox taper program was explained to the px and social media sr strategy manager is the one who will discuss her D/C. Bed on lowest position, side rails up 2x and call light within reach. We'll continue to monitor.
[2018-03-13 20:00] VITALS: BP 107/73
--- NOTE | 2018-03-13 20:00 | NUR ---
CIWA 11 Px is awake on bed appears depressed with flat affect. Px has good eye contact. Px stated that her anxiety is 6/10. Bilateral hand tremors noted and has sweats at night. We'll continue to monitor.
[2018-03-13] MEDS: DIVALPROEX 500 MG TABLET.DR PO SCH (21:09)
[2018-03-13] MEDS: MELOXICAM 7.5 MG TABLET PO PRN (21:09)
--- NOTE | 2018-03-13 22:10 | NUR ---
Reassessment of pain Px stated that her pain improved to 5/10 from 7/10.
--- NOTE | 2018-03-13 22:10 | NUR ---
Reassessment of CIWA 11 Px is still awake. Px appears depressed with flat affect. Px has good eye contact. Px stated that her anxiety is still 6/10. Bilateral hand tremors noted and has sweats at night. We'll continue to monitor.
[2018-03-13] MEDS: QUETIAPINE FUMARATE 100 MG TABLET PO PRN (22:36)
--- NOTE | 2018-03-13 22:36 | NUR ---
PRN medications At 2108, px received Meloxicam 7.5 mg/tab, 2 tabs PO for jaw pain of 7/10. At 2235, px received Seroquel 100 mg/tab, 1 tab PO for insomnia. We'll continue to monitor.
[2018-03-14] VITALS: BP 110/68
[2018-03-14 04:00] VITALS: BP 111/66
--- NOTE | 2018-03-14 04:00 | NUR ---
CIWA deferred CIWA deferred at 0000 and 0400 due to the px is asleep. To assess if the px is awake per doctor's order.
--- NOTE | 2018-03-14 07:10 | NUR ---
End of Shift Note During the shift at 2108, Meloxicam tab given PO for jaw pain, it was effective. At 6, px received Seroquel 100 mg PO for insomnia. It was effective. At 0630, px is asleep on bed in left side lying position. Last CIWA 11. Px slept for 7 hours. Bed on lowest position, side rails up 2x and call light within reach. We'll continue to monitor. Px endorsed to AM shift nurse.
--- NOTE | 2018-03-14 07:32 | NUR ---
START OF SHIFT Pt is a 22 yr old female, AA&Ox4. Pt was admitted on 03/08/18 for Opiate/Benzo withdrawal and is on 5 day Valium taper. Received report from slot shift supervisor nurse. Pt received Mobic PRN and Seroquel PRN during the night. Medication was effective. Last CIWA score was 11 at 2210. Pt slept for 6 hrs. Pt is c/o jaw and tooth pain 5/10 and c/o anxiety, lack of appetite, chills and sweats. Pt stated of having difficulty sleeping due to night terrors. Skin is intact, warm and moist. is on fall and seizure precautions. Call light is within reach. Will continue to monitor.
[2018-03-14 08:00] VITALS: BP 105/66
[2018-03-14] MEDS: MULTIVITAMINS,THERAPEUTIC TABLET PO SCH (08:44)
[2018-03-14] MEDS: ENSURE WITH FIBER 237 ML LIQUID (CHOCOLATE) PO SCH ×3 (08:44→17:23)
[2018-03-14] MEDS: GABAPENTIN 100 MG CAPSULE PO SCH ×3 (08:44→17:23)
[2018-03-14] MEDS: LEVETIRACETAM 250 MG TABLET PO SCH ×2 (08:44→21:31)
[2018-03-14] MEDS ORDERED: DIAZEPAM 5 MG TABLET PO SCH (09:00)
--- NOTE | 2018-03-14 09:00 | NUR ---
CIWA SCORE 8 Pt is c/o anxiety, agitation, sweats, chills, loss of appetite and night terrors. Skin is warm and moist to touch. Pt was given Valium 5mg PO as scheduled at 0900 for withdrawal. medication clementina well.
[2018-03-14 12:00] VITALS: BP 101/54
--- NOTE | 2018-03-14 13:17 | NUR ---
CIWA SCORE 6 Pt is c/o anxiety, agitation, chills, loss of appetite and night terrors. Pt is c/o of tooth pain on the left side. Skin is warm and moist to touch. Pt states she is able to cope with anxiety level. Will continue to monitor.
[2018-03-14 16:00] VITALS: BP 107/65
--- NOTE | 2018-03-14 19:10 | NUR ---
END OF SHIFT Pt is a 22 yr old female, AA&Ox4. Pt has been cooperative with medication regimen and plan of care. Pt has been noted with increase fatigue and remained in her room throughout the day. Pt c/o anxiety, agitation, sweats, chills, night terrors, lack of appetite. No SI/HI noted. No PRN's were given during the day. Last CIWA score was 6. Encouraged increase fluid intake for hydration. Pt is to be discharged tomorrow to the [facility]. Pt states she is ready to continue with her treatment. Safety precautions observed. Call light is within reach. Endorsed to night shift manager nurse to continue with care.
--- NOTE | 2018-03-14 19:30 | NUR ---
Start of shift note Received report from day shift Nurse. Patient is a 22 year old female admitted for Opiate/Benzo withdrawal. Patient completed Modified Valium taper. Patient is medically cleared to be discharge tomorrow. Patient did not require PRN medication. Last CIWA 6. Patient in room, watching TV. Alert and oriented x 4. Patient presents with anxiety, restlessness, worried, sweats, muscle aches, restless legs , toothache and poor appetite. Encouraged fluids. Safety measures in place. Call light in reach . Will continue to monitor.
[2018-03-14 20:00] VITALS: BP 109/72
--- NOTE | 2018-03-14 20:00 | NUR ---
CIWA assessment Patient presents with anxiety, restlessness, worried, sweats, muscle aches, restless legs , toothache and poor appetite. CIWA 6
[2018-03-14] MEDS ORDERED: DIVA500T2 PO (21:25)
[2018-03-14] MEDS ORDERED: LEVE250T2 PO (21:25)
[2018-03-14] MEDS ORDERED: HYDR-3895 PO (21:25)
[2018-03-14] MEDS ORDERED: QUET100T PO (21:25)
[2018-03-14] MEDS ORDERED: MELO-105 PO (21:25)
[2018-03-14] MEDS ORDERED: GABA-532 PO (21:25)
[2018-03-14] MEDS ORDERED: CLON0.1T14 PO (21:25)
[2018-03-14] MEDS ORDERED: METH-406 PO (21:25)
[2018-03-14] MEDS: MELOXICAM 7.5 MG TABLET PO PRN (21:30)
[2018-03-14] MEDS: QUETIAPINE FUMARATE 100 MG TABLET PO PRN (21:30)
[2018-03-14] MEDS: DIVALPROEX 500 MG TABLET.DR PO SCH (21:30)
--- NOTE | 2018-03-14 21:30 | NUR ---
PRN Mobic and Seroquel administration Patient c/o toothache, generalized body aches and patient requests for sleep aid. Will Monitor for effectiveness
--- NOTE | 2018-03-14 22:30 | NUR ---
PRN Mobic re-assessment Patient states Mobic helpful and effective. Pain tolerable at this time.
--- NOTE | 2018-03-15 | NUR ---
PRN Seroquel re-assessment/CIWA deferred Patient lying in bed with eyes closed. Respiration even and unlabored. VS refused. Will continue to monitor.
[2018-03-15 04:00] VITALS: BP 119/54
--- NOTE | 2018-03-15 04:00 | NUR ---
CIWA deferred Patient lying in bed with eyes closed. Respiration even and unlabored. VS refused. Will continue to monitor.
--- NOTE | 2018-03-15 07:04 | NUR ---
End of shift note Patient slept 7 hours. Fluid intake 2,402 ml. Voided x 4 . BM x 1 . Patient completed Modified Valium taper. Patient is medically cleared to be discharge today . Patient presented with anxiety, restlessness, worried, sweats, muscle aches, restless legs , toothache and poor appetite. Encouraged fluids. Patient was given PRN Seroquel and Mobic . Patient states medications are effective in controlling her withdrawal symptoms. Patient compliant with medication and treatment plan. Safety measures in place. Call light in reach . Will continue to monitor. Last CIWA 6.
--- NOTE | 2018-03-15 07:35 | NUR ---
START OF SHIFT Pt is a 22 yr old female, AA&Ox4. Pt was admitted on 03/08/18 for Opiate/Benzo withdrawal and is on 5 day Valium taper. Received report from electronic technician nurse. Pt received Mobic PRN and Seroquel PRN during the night. Medication was effective. Last CIWA score was 6. Pt slept for 7 hrs. Pt is c/o anxiety, chills and sweats. Skin is intact, warm and moist. Pt is to be discharged today to the [facility]. Will continue to f/u. Pt is on fall and seizure precautions. Call light is within reach.
[2018-03-15 08:11] VITALS: BP 98/56
[2018-03-15] MEDS: MULTIVITAMINS,THERAPEUTIC TABLET PO SCH (08:47)
[2018-03-15] MEDS: LEVETIRACETAM 250 MG TABLET PO SCH (08:47)
[2018-03-15] MEDS: GABAPENTIN 100 MG CAPSULE PO SCH (08:47)
[2018-03-15] MEDS: ENSURE WITH FIBER 237 ML LIQUID (CHOCOLATE) PO SCH (08:51)
--- NOTE | 2018-03-15 09:45 | NUR ---
DISCHARGE NOTE Pt is a 22 yr old female, AA&Ox4. pt was admitted on 03/08/18 for Benzo/Opiate withdrawal and has completed a 5 day Valium taper as ordered. Pt has been cooperative with medication and plan of care. Pt was noted with anxiety but states she is able to cope with anxiety level. No SI/HI noted. Pt was educated on discharged summary and prescriptions. Pt was able to verbalize understanding. Pt left the unit at 0936 in stable condition to the [facility]. Pt left with all belongings, valuables and home medication.
== END 2018-03-15 09:36 | disposition other institution (70) | DRG 895 ==
LOC: SRC 23:14
PROVIDERS: ADMIT Family Medicine Addiction Medicine; ATTEND Family Medicine Addiction Medicine
PROC: HZ2ZZZZ Detoxification Services for Substance Abuse Treatment (ICD-10-PCS; principal; 2018-03-08)
PROC: HZ41ZZZ Group Counseling for Substance Abuse Treatment, Behavioral (ICD-10-PCS; 2018-03-10)
PROC: HZ31ZZZ Individual Counseling for Substance Abuse Treatment, Behavioral (ICD-10-PCS; 2018-03-12)
DX: F13.239 Sedative, hypnotic or anxiolytic dependence with withdrawal, unspecified (principal); G40.509 Epileptic seizures related to external causes, not intractable, without status epilepticus; F11.23 Opioid dependence with withdrawal; F41.9 Anxiety disorder, unspecified; Z91.89 Other specified personal risk factors, not elsewhere classified; Z81.1 Family history of alcohol abuse and dependence; Z80.3 Family history of malignant neoplasm of breast; F17.210 Nicotine dependence, cigarettes, uncomplicated; R68.84 Jaw pain; Y04.8XXS Assault by other bodily force, sequela; F51.4 Sleep terrors [night terrors]; F32.9 Major depressive disorder, single episode, unspecified
CPT/HCPCS: 36415; 70030-TC; 80307; 80346; 80361; 83690; 83735; 84443; 84703; 85025; 86580; 86592; 86705; 86803; 87340; 87806; G0480; J1885; Q0162

== ENCOUNTER 2018-04-10 16:52 | Emergency (ER) | payer BC, OTHER ==
[~2018-04-10] VITALS: Ht 160 cm; Wt 59.0 kg
[~2018-04-10 16:52] MED LIST changes: -ASPI-618 PO; -BACL10TA PO; -DICY20TA28 PO; -DIVA250T4 PO; +DIVA500T2 PO; -FLUC150T PO; -GABA-534 PO; +HYDR-3895 PO; +LEVE250T2 PO; -LEVE500T9 PO; -LIDO30AD10 TD; +MELO-105 PO; -Metronidazole PO; -NICO-671 TD; -OLAN5TAB6 PO; -PANT40TA2 PO; +QUET100T PO; -SERT50TA PO; -SERT50TA12 PO
[2018-04-10] MEDS ORDERED: ONDA4TAB5 PO (17:07)
[2018-04-10] MEDS ORDERED: GABA800T2 PO (17:07)
[2018-04-10] MEDS ORDERED: LEVE500T9 PO (17:07)
[2018-04-10] MEDS ORDERED: LEVETIRACETAM 250 MG TABLET ONE (17:29)
[2018-04-10] MEDS ORDERED: LEVETIRACETAM 250 MG TABLET PO ONE (17:30)
[2018-04-10] MEDS ORDERED: IV NORMAL SALINE 1000 ML BAG IV ONE (17:30)
[2018-04-10 17:37] LABS: BASOPHILS % (AUTO) 0.3 % (0.0-2.0); EOSINOPHILS # (AUTO) 0.2 K/uL (0.0-0.7); HEMATOCRIT 41.3 % (31.2-41.9); HEMOGLOBIN 13.7 g/dL (10.9-14.3); LYMPHOCYTES # (AUTO) 2.5 K/uL (20.0-40.0); LYMPHOCYTES % (AUTO) 33.8 % (20.5-51.5); MEAN CORPUSCULAR HGB CONC 33 g/dL (32.3-35.6); MEAN CORPUSCULAR VOLUME 87.7 fL (75.5-95.3); MONOCYTES # (AUTO) 0.7 K/uL (2.0-10.0); MONOCYTES % (AUTO) 10.2 % (0.0-11.0); NEUTROPHILS # (AUTO) 3.8 K/uL (1.8-8.9); NEUTROPHILS % (AUTO) 52.7 % (38.5-71.5); PLATELET COUNT (AUTO) 197 K/uL (179-408); RED BLOOD CELL COUNT(AUTO) 4.71 MIL/uL (3.63-4.92); WHITE BLOOD COUNT (AUTO) 7.3 K/uL (3.8-11.8)
[2018-04-10 17:53] LABS: CREATININE 0.8 mg/dL (0.6-1.3); POTASSIUM 4.3 mmol/L (3.5-5.1)
[2018-04-10 17:58] LABS: BILIRUBIN,DIRECT 0.1 mg/dL (0.0-0.2); BILIRUBIN,TOTAL 0.2 mg/dL (0.2-1.0)
[2018-04-10 17:59] LABS: *URINE HCG, QUAL NEGATIVE (NEGATIVE)
--- NOTE | 2018-04-10 18:19 | NUR ---
"My whole body hurts. Can I have non-narcotic medicine?" per patient. notified.
[2018-04-10] MEDS ORDERED: IBUPROFEN 600 MG TABLET PO ONE (18:30)
[2018-04-10] MEDS ORDERED: IBUPROFEN 600 MG TABLET ONE (18:30)
--- NOTE | 2018-04-10 19:02 | NUR ---
still for disposition, SBAR to JAY harding
--- NOTE | 2018-04-10 19:43 | NUR ---
IV removed. Catheter intact and site benign. Pressure and 4x4 gauze applied to site. No bleeding noted.
--- NOTE | 2018-04-10 19:47 | NUR ---
Patient discharged to home in stable conditon with sober living staff taking patient home. Written and verbal after care instructions given. Patient verbalizes understanding of instructions. Walked out of ER with steady gait. No distress noted
[2018-04-10 19:48] VITALS: BP 100/75
== END 2018-04-10 19:49 | disposition home or self-care (01) ==
LOC: ER 16:52
DX: R56.9 Unspecified convulsions (principal); R79.89 Other specified abnormal findings of blood chemistry; J45.909 Unspecified asthma, uncomplicated; F17.210 Nicotine dependence, cigarettes, uncomplicated; F11.10 Opioid abuse, uncomplicated; F15.10 Other stimulant abuse, uncomplicated; Z90.49 Acquired absence of other specified parts of digestive tract
CPT/HCPCS: 36415; 84703; 85025; 93005; A4663; J7030

== ENCOUNTER 2019-08-19 18:13 | Emergency (ER) | payer BC ==
[~2019-08-19] VITALS: Ht 160 cm; Wt 54.4 kg
[~2019-08-19 18:13] MED LIST changes: +GABA800T11 PO; +LEVE500T9 PO; +ONDA4TAB5 PO
[2019-08-19] MEDS ORDERED: CARI350T PO (18:32)
[2019-08-19] MEDS ORDERED: ALPR2TAB7 PO (18:32)
--- NOTE | 2019-08-19 18:47 | NUR ---
ASSAULT REPORTED TO [id number] ON NON-EMERGENCY LINE WHO STATED SHE WILL DISPATCH OFFICERS TO COME SPEAK WITH THE PT.
--- NOTE | 2019-08-19 19:15 | NUR ---
Pt provided urine sample, sent to lab.
[2019-08-19 19:30] LABS: *BILIRUBIN,URIN NEGATIVE (NEGATIVE); *BLOOD, URINE 3+ (NEGATIVE); *KETONES,URINE NEGATIVE (NEGATIVE); *UROBILINOGEN,URINE 0.2 E.U./dl (NORMAL); LEUKOCYTE ESTERASE ,URINE 1+ (NEGATIVE); NITRITE, URINE NEGATIVE (NEGATIVE); UGLUCOSE NEGATIVE (NEGATIVE)
--- NOTE | 2019-08-19 19:30 | NUR ---
Xray at bedside.
[2019-08-19 19:31] LABS: *CLARITY,URINE HAZY (CLEAR); *COLOR,URINE STRAW (YELLOW)
[2019-08-19 19:32] LABS: *URINE HCG, QUAL NEGATIVE (NEGATIVE); BACTERIA,URINE FEW /HPF (NONE SEEN); RBC,URINE 20-50 /HPF (0-3); SQUAMOUS EPITHELIAL CELL,UR FEW /HPF (NONE SEEN)
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
[2019-08-19] MEDS ORDERED: HYDROCODONE/APAP 10-325 MG TABLET ONE (19:55)
[2019-08-19] MEDS ORDERED: HYDROCODONE/APAP 10-325 MG TABLET PO ONE (20:00)
--- NOTE | 2019-08-19 20:17 | NUR ---
Patient discharged to home in stable conditon. Written and verbal after care instructions given. Patient verbalizes understanding of instructions. Pt ambulated out of ER with steady gait, no acute signs of distress, VSS, all belongings taken, to be driven home by significant other via private vehicle.
[2019-08-19 20:18] VITALS: BP 112/69
== END 2019-08-19 20:18 | disposition home or self-care (01) ==
LOC: ER 18:21
DX: S16.1XXA Strain of muscle, fascia and tendon at neck level, initial encounter (principal); S20.211A Contusion of right front wall of thorax, initial encounter; J45.909 Unspecified asthma, uncomplicated; F17.200 Nicotine dependence, unspecified, uncomplicated; G89.29 Other chronic pain; M54.9 Dorsalgia, unspecified; F41.9 Anxiety disorder, unspecified; F11.10 Opioid abuse, uncomplicated; F12.10 Cannabis abuse, uncomplicated; Z90.49 Acquired absence of other specified parts of digestive tract; Z90.89 Acquired absence of other organs; Z79.899 Other long term (current) drug therapy; Y04.2XXA Assault by strike against or bumped into by another person, initial encounter; Y93.89 Activity, other specified; Y92.89 Other specified places as the place of occurrence of the external cause; Y99.8 Other external cause status
CPT/HCPCS: 71101; 72072; 73000; 84703; 87086; A4663